=== PATIENT | male | born 1965 | race African-American/Black ===

== ENCOUNTER → 2020-01-15 08:27 | Outpatient (CLI) | payer MEDICAID ==
--- NOTE | 2020-01-18 13:47 | EC ---
PATIENT:MARIBEL STOKES DATE OF SERVICE: 01/15/20 SEX: M MEDICAL RECORD: [id number] DATE OF : 63 [facility] AGE OF PATIENT: 54 ADMISSION DATE: 01/15/20 REFERRING PHYSICIAN: INTERPRETING PHYSICIAN: OUMAR CERNA MD ECHOCARDIOGRAM REPORT ECHO CHARGES 4 ECHO COMPLETE Date: 01/15/20 CLINICAL DIAGNOSIS: HEART MURMUR ECHOCARDIOGRAPHIC MEASUREMENTS (adult normal given) AC root (d.<3.7cm) 4.0 cm LV Septum d (<1.2 cm> 1.5 cm Valve Excursion 2.0 cm LV Septum (systole) 2.1 cm Left Atria (s.<4.0cm> 4.0 cm LVPW d(<1.2cm) 1.4 cm RV (d.<2.3cm) 3.0 cm LVPW (sytole) 2.0 cm LV diastole(<5.6CM) 5.1 cm MV E-F(>70mm/sec) cm LV systole 2.8 cm LVOT Diameter 2.3 cm MV exc.(>10mm) 2.1 cm Est.ejection fraction (50-75%) % DOPPLER: LVIT cm/sec A 63.0 cm/sec E 75.0 cm/sec LA cm/sec RVSP 33 mmHg LVOT 84 cm/sec AOP1/2T m/s Asc. Ao 126 cm/sec RVOT cm/sec RA cm/sec PA 131 cm/sec AV Gradient Peak 6.40 mmHg AV Mean 3.28 mmHg AV Area 2.3 cm MV Gradient Peak 2.57 mmHg MV Mean 0.89 mmHg MV Area cm COMMENTS: Network Development Coordinator: 2 KIM LUCERO Certified Alcohol And Drug Counselor: 3 Dr. Wilcox TAPE# PACS Pericardial Effusion N DATE OF SERVICE: Adequate 2D, color flow imaging, spectral Doppler, and M-mode. LVH is present. LV internal dimension is normal. Wall motion is normal. EF is greater than or equal to 55%. Aortic valve is tricuspid. No evidence of stenosis by Doppler interrogation. Left atrium is normal at 4.8 cm. Mitral valve shows no prolapse. Trace MR. Right-sided chambers are grossly normal. Mild TR. ECHOCARDIOGRAM REPORT [id number] MARIBEL STOKES NTS:[id number] Voice Confirmation ID: [id number] DOCUMENT ID: [id number] OUMAR CERNA MD at 1347 CC: [id number] DICTATION DATE: 01/15/20 1244 BOSS MINER: 01/15/202219 DEP CLI 01/15/20 [place] [id number] [place] [id number]
== END | disposition home or self-care (01) ==
LOC: D.HCCECHO 08:27
PROVIDERS: ATTEND Internal Medicine Cardiovascular Disease
DX: I20.9 Angina pectoris, unspecified (principal); R00.1 Bradycardia, unspecified

== ENCOUNTER 2020-02-08 06:38 | Day surgery (SDC) | payer MEDICAID ==
[~2020-02-08] VITALS: Ht 175.3 cm; Wt 96.0 kg
--- NOTE | ~2020-02-08 | HEMODYNAMI ---
PATIENT:MARIBEL STOKES MEDICAL RECORD: [id number] : 63 LOCATION:D.CAT ADMISSION DATE: 02/08/20 Generatedon:02/08/202010:18 Patient name: MARIBEL STOKES Patient #: [id number] SSN: [id number] : 1965 Date of study: 02/08/2020 Page: Of Hemodynamic Procedure Report Patient Data Patient Demographics Procedure consent was obtained First Name: MARIBEL Gender: Male Last Name: KIKE : 1965 Middle Initial: A Age: 54 year(s) Patient #: [id number] Race: Black SSN: [id number] Additional ID: [id number] Contact details [address]: [address] [place] [address] State: [place] City: [place] Zip code: [address] Past Medical History Allergies Allergen Reaction Date Comments Reported Other allergy 02/08/2020 codeine Admission Admission Data Admission Date: 02/08/2020 Admission Time: 6:38 Arrival Date: 02/08/2020 Arrival Time: 0:00 Admit Source: Other Insurance Payor: Medicare [facility] #: [id number] Lab Results Lab Result Date: 02/08/2020 Lab Result Time: 0:00 Biochemistry Name Units Result Min Max BUN mg/dl 21 --(----)-* 7 18 Creatinine mg/dl 1.5 --(----)-* 0.6 1.3 eGFR ml/min 63 *-(----)-- 90 120 NONAFRICAN CBC Name Units Result Min Max Hemoglobin g/dl 14.6 --(-*--)-- 13.5 17.5 Procedure Procedure Types Cath Procedure Diagnostic Procedure LHC LH w/Coronaries Sedation Charges Moderate Sedation up to 15 minutes PCI Procedure Coronary Stent Coronary Stent Initial Hemochron ACT Test Procedure Description Procedure Date Procedure Date: 02/08/2020 Procedure Start Time: 9:53 Procedure End Time: 10:13 Procedure Staff Name Function Gurjit Hester MD Ordering physician Fortino Casanova MD Performing Physician Cari Portillo RT Monitor Clara Culver RN Nurse Kecia Ayoub RT Scrub Procedure Data Cath Procedure Fluoroscopy Diagnostic fluoroscopy Total fluoroscopy Time: 3.9 time: 3.9 min min Diagnostic fluoroscopy Total fluoroscopy dose: 998 dose: 998 mGy mGy Contrast Material Contrast Material Type Amount (ml) Isovue 370 93 Entry Location Entry Primary Successful Side Size Upsize Upsize Entry Closure Jordan ccessful Closure Location (Fr) 1 (Fr) 2 (Fr) Remarks Device Remarks Radial Right 6 Fr Mechanical artery Short Compression Estimated blood loss: 10 ml Diagnostic catheters Device Type Used For End Catheter Placement DIAGNOSTIC Almena 110cm 5 Procedure Fr catheter ([id number]) Procedure Complications No complications Procedure Medications Medication Administration Route Dosage 0.9% NaCl I.V. 100 ml/hr Oxygen etCO2 Nasal cannula 2 l/min Lidocaine 2% added to field 20 Heparin Flush Bag added to field 2 bags (1000units/500ml NS) Radial Cocktail added to field 1 syringe (Verapamil 2mg/Nitro 400mcg/Heparin 1500units) Versed I.V. 2 mg Fentanyl I.V. 50 mcg Fentanyl I.V. 50 mcg Heparin Bolus I.V. 5000 units Integrilin (Bolus I.V. 8.5 ml 2mg/ml) Integrilin (Bolus wasted 1.5 ml 2mg/ml) Plavix P.O. 600 mg Hemodynamics Rest HGB: 14.6 (g/dl) Heart Rate: 44 (bpm) Pressure Samples Time Site Value (mmHg) Purpose Heart Use Rate(bpm) 9:56 LV 115/13,105 Snapshot 74 9:56 AO 95/71(81) Pullback 50 9:56 LV 99/13,17 Pullback 50 Gradients Valve Time Site 1 Site 2 Mean SEP/DFP Peak To Heart Use (mmHg) (sec/min) Peak Rate (mmHg) (bpm) Aortic 9:56 LV AO 2 7 4 50 99/13,17 95/71(81) Calculations Valve P-P Mean Valve Index Valve Source Name Gradient Area Flow (cm2) Aortic 4 2 4 2 Snapshots Pre Cath Intra NCS Post Cath Vital Signs Time Heart Resp SPO2 etCO2 NIBP (mmHg) Rhythm Pain Sedation Rate (ipm) (%) (mmHg) Status Level (bpm) 9:39:58 46 14 100 32.3 160/88(140) SB 0 (11) 10(A) , No pain 9:44:22 49 24 100 31.5 134/79(104) SB 0 (11) 10(A) , No pain 9:48:44 48 23 100 36.8 119/74(94) SB 0 (11) 10(A) , No pain 9:53:43 49 24 100 36 Measuring SB 0 (11) 10(A) , No pain 9:53:53 48 29 100 35.3 105/71(83) SB 0 (11) 10(A) , No pain 9:58:14 50 15 99 35.3 109/58(79) SB 0 (11) 10(A) , No pain 10:02:32 51 20 99 36 105/58(83) SB 0 (11) 10(A) , No pain 10:06:50 50 15 97 33.8 106/61(91) SB 0 (11) 10(A) , No pain 10:11:06 51 31 99 37.6 114/68(92) SB 0 (11) 10(A) , No pain Medications Time Medication Route Dose Verified Delivered Reason Not es Effectiveness by by 9:39:34 0.9% NaCl I.V. 100 Fortino Clara used for ml/hr Jocelyne Palomo procedure RN 9:39:41 Oxygen etCO2 2 l/min Fortino Clara used for Nasal [facility] procedure cannula RN 9:39:46 Lidocaine 2% added 20ml Fortino Freitas for local to vial [facility] anesthetic field MD GO 9:39:53 Heparin Flush added 2 bags Fortino Freitas Bag to [facility] (1000units/500ml field MD GO NS) 9:39:57 Radial Cocktail added 1 Fortino Freitas used for (Verapamil to syringe [facility] procedure 2mg/Nitro field MD GO 400mcg/Heparin 1500units) 9:51:07 Versed I.V. 2 mg Fortino Clara for sedation [facility] J[facility] Culver MD RN 9:51:18 Fentanyl I.V. 50 mcg Fortino Clara for sedation [facility] Jcar[facility] Culver MD, RN 9:55:39 Fentanyl I.V. 50 mcg Fortino Clara for sedation [facility] Jcarlos Culver MD RN 10:02:05 Heparin Bolus I.V. 5000 Fortino Clara for marlys ified units [facility] Jcarlos Culver anticoagulation with Dr. MD SHAVON Wild John 10:02:22 Integrilin I.V. 8.5 ml Fortino Elizabeth for (Bolus 2mg/ml) St Jcarlos Culver antiplatelet RN therapy 10:05:37 Integrilin wasted 1.5 ml Fortino Montenegroa for (Bolus 2mg/ml) [facility] Jcarlos Culver antiplatelet RN therapy 10:05:42 Plavix P.O. 600 mg Fortino Montenegroa for [facility] Jcarlos Culver antiplatelet RN therapy Procedure Log Time Note 9:30:12 Arrival Date: 02/08/2020 12:00:00 AM 9:30:28 Admit Source: Other 9:30:29 Insurance Payor : Medicare 9:37:38 Procedure Status Elective Heart Cath (OP). 9:37:52 Diagnostic Cath Status : Elective 9:38:12 Clara Culver RN sent for patient. Start room use. 9:38:14 Time tracking: Regular hours (M-F 7:00 - 5:00) 9:38:21 Plan of Care:Hemodynamics will remain stable., Cardiac rhythm will remain stable., Comfort level will be maintained., Respiratory function will remain adequate., Patient/ family verbilizes understanding of procedure., Procedure tolerated without complication., Recovers from procedure without complications.. 9:38:27 Patient received from Pre/Post Procedure Room to CCL 1 Alert and oriented. Tansferred to table in Supine position. 9:38:29 Warm blankets applied, and rebecca hugger turned on for patient comfort. 9:38:29 Correct patient and procedure confirmed by team. 9:38:30 ECG and BP/O2 sat monitors applied to patient. 9:38:33 Vital chart was started 9:38:40 Baseline sample Acquired. 9:38:44 Full Disclosure recording started 9:38:49 H&P Date Dictated: 02/08/2020 Within 30 days and on chart.. 9:38:51 Pre-procedure instructions explained to patient. 9:38:55 Family in patients room. 9:38:57 Patient NPO since Midnight. 9:39:13 Patient allergic to Other allergycodeine 9:39:22 Is the patient allergic to Iodine/contrast media? No. 9:39:24 Informed consent obtained and on chart 9:39:25 Is patient on blood thinner?No 9:39:27 Patient diabetic? No. 9:39:32 Snore? No 9:39:33 Sleep apnea? No 9:39:34 0.9% NaCl 100 ml/hr I.V. was administered by Clara Culver RN; used for procedure; Verbal order read back and verified. 9:39:40 Patient pain scale 0/10 ?. 9:39:41 Oxygen 2 l/min etCO2 Nasal cannula was administered by Clara Culver RN; used for procedure; Verbal order read back and verified. 9:39:46 Lidocaine 2% 20ml vial added to field was administered by Fortino Casanova MD; for local anesthetic; Verbal order read back and verified. 9:39:52 IV patent on arrival in right forearm with 0.9% NaCl at O. 9:39:53 Heparin Flush Bag (1000units/500ml NS) 2 bags added to field was administered by Fortino Casanova MD; ; Verbal order read back and verified. 9:39:57 Radial Cocktail (Verapamil 2mg/Nitro 400mcg/Heparin 1500units) 1 syringe added to field was administered by Fortino Casanova MD; used for procedure; Verbal order read back and verified. 9:40:00 Lab results completed and on chart. 9:40:20 Stress Test: yes; abnormal inferior 9:40:26 Right Radial & Right Groin area was prepped with chlora-prep and draped in sterile fashion 9:40:27 Alarms reviewed by R. N. 9:40:28 Sharps counted by scrub and verified by R.N. 9:40:29 Physician paged 9:41:44 Lab Result : Creatinine 1.5 mg/dl 9:41:44 Lab Result : BUN 21 mg/dl 9:41:44 Lab Result : Hemoglobin 14.6 g/dl 9:41:44 Lab Result : eGFR NONAFRICAN 63 ml/min 9:41:52 Use device set Radial Dx or PCI 9:42:50 ACIST Syringe (46450) opened to sterile field. 9:42:51 Medline Cath Pack ([id number]) opened to sterile field. 9:42:51 Bag Decanter () opened to sterile field. 9:42:52 ACIST Hand Control (23535) opened to sterile field. 9:42:53 ACIST Manifold (49577) opened to sterile field. 9:42:53 Tegaderm 4 x 4 (1626W) opened to sterile field. 9:42:55 MBrace Wrist Support (093974539) opened to sterile field. 9:42:57 EMERALD Guide Wire (045-092) opened to sterile field. 9:42:58 SHEATH 6FR RAIN (9486473) opened to sterile field. 9:49:55 Baseline sample Acquired. 9:50:04 Physician arrived 9:50:05 --------ALL STOP TIME OUT------ 9:50:06 Final Timeout: patient, procedure, and site verified with staff and physician. All members of the team are in agreement. 9:50:07 Right Radial & Right Groin site verified by team. 9:50:12 Fire Safety Assessment: A--An alcohol-based skin anteseptic being used preoperatively., C--Open oxygen or nitrous oxide is being used., D--An ESU, laser, or fiber-optic light is being used. 9:50:20 Physical assessment completed. ASA score P 2 - A patient with mild systemic disease as per Fortino Casanova MD. 9:50:23 2) 60-89 Mildly reduced kidney function, and other findings (as for stage 1) point to kidney disease. 9:50:32 Maximum allowable contrast dose (3.7 X eGFR X 0.75)175 ml. 9:50:37 Sedation plan: IV Moderate Sedation Medication:Versed, Fentanyl 9:51:07 Versed 2 mg I.V. was administered by Clara Culver RN; for sedation; Verbal order read back and verified. 9:51:18 Fentanyl 50 mcg I.V. was administered by Clara Culver RN; for sedation; Verbal order read back and verified. 9:53:07 Procedure started. 9:53:48 Local anesthetic to right radial artery with Lidocaine 2% by Fortino Casanova MD.INITIAL ACCESS ONLY 9:54:53 A 6 Fr Short sheath was inserted into the Right Radial artery 9:54:58 J wire advanced. 9:55:11 A DIAGNOSTIC Almena 110cm 5 Fr catheter (629060) was advanced over the wire and used for Procedure. 9:55:39 Fentanyl 50 mcg I.V. was administered by Clara Culver RN; for sedation; Verbal order read back and verified. 9:55:42 LV angiography performed. 9:55:50 LV gram done using FARIA 9:56:52 LCA angiography performed. 9:59:07 RCA angiography performed. 10:01:02 GUIDE 6FR XBLAD 3.5 catheter ([id number]) opened to sterile field. 10:01:03 INFLATOR Merit BasixCompak (AL9558) opened to sterile field. 10:01:08 WHISPER 300cm guide wire ([id number]) opened to sterile field. 10:01:53 EF : 55 % 10:02:05 Heparin Bolus 5000 units I.V. was administered by Clara Culver RN; for anticoagulation; verified with Dr. Wilcox Verbal order read back and verified. 10:02:22 Integrilin (Bolus 2mg/ml) 8.5 ml I.V. was administered by Clara Culver RN; for antiplatelet therapy; Verbal order read back and verified. 10:03:17 Catheter removed. 10:03:41 6 Fr xblad3.5 guide catheter was inserted over the wire 10:03:49 whisp wire advanced. 10:03:54 Wire advanced across lesion. 10:05:37 Integrilin (Bolus 2mg/ml) 1.5 ml wasted was administered by Clara Culver RN; for antiplatelet therapy; Verbal order read back and verified. 10:05:42 Plavix 600 mg P.O. was administered by Clara Culver RN; for antiplatelet therapy; Verbal order read back and verified. 10:08:20 Place stent Inflation Number: 1 A SHE OTW 3.0 x 18 stent ([id number]) was prepped and advanced across the Mid LAD 80. The stent was deployed at 0 ANDREY for 1:05 (min:sec) 0. 10:08:26 ZEPHYR REGULAR TR BAND (108714) opened to sterile field. 10:10:18 Balloon removed over the wire. 10:10:19 Wire removed. 10:10:20 Guide catheter removed. 10:10:35 Sheath removed intact; hemostasis achieved with Mechanical Compression to the Right Radial artery. 10:10:38 Procedure ended.(Physican Out) 10:10:53 Fluoroscopy time 03.90 minutes. 10:10:58 Fluoroscopy dose: 998 mGy 10:10:58 Flurop Dose total: 998 10:11:04 Dose Area Product 74271 mGy/cm. 10:11:10 Contrast amount:Isovue 370 93ml. 10:11:14 Maximum allowable dose exceeded? No. 10:11:17 Insertion/operative site no bleeding no hematoma. 10:11:29 Post Procedure Pulses reassessed and unchanged 10:11:41 Post-procedure physical assessment completed. ASA score P 2 - A patient with mild systemic disease as per Fortino Casanova MD. 10:11:45 Post procedure rhythm: unchanged. 10:11:47 Estimated blood loss: 10 ml 10:11:50 Post procedure instruction explained to patient.Patient verbalizes understanding. 10:12:42 Procedure type changed to Cath procedure, Diagnostic procedure, LHC, C w/Coronaries, Sedation Charges, Moderate Sedation up to 15 minutes, PCI procedure, Coronary Stent, Coronary Stent Initial, Hemochron ACT Test 10:12:44 Procedure and supply charges have been captured, reviewed, submitted and are correct. 10:13:14 Procedure Complication : No complications 10:13:21 Vital chart was stopped 10:13:29 [facility] Findings: MVD- PCI performed (see procedure note) 10:13:32 See physician's report for complete and final results. 10:13:34 Report given to Pre/Post Procedure Room. 10:13:37 Patient transfered to Pre/Post Procedure Room with Stretcher. 10:13:43 Procedure ended. 10:13:43 Full Disclosure recording stopped 10:13:47 End room use (Document Last) 10:13:49 ACT drawn and resulted at >400- out of range seconds. (normal therapeutic range 180-240 seconds). 10:14:06 ACC-PCI Only Patient was given prescriptions, or instructed by Fortino Casanova MD to start/continue the following medications upon discharge: Plavix Intervention Summary Intervention Notes Time ActionType Lesion and Equipment Action# Pressure Duration Attributes Used 10:08:20 Place stent Mid LAD SHE OTW 3.0 1 0 01:05 x 18 stent ([id number]) Device Usage Item Name Manufacture Quantity Catalog Hospital Part Current Mini mal Lot# / Number Charge Number Stock Stock Serial# Code ACIST Syringe Acist 1 15343 781298 132578 270344 20 (33665) Zoosk Medline Cath Medline 1 [id number] 059647 45805 915148 5 Pack ([id number]) Bag Decanter Microtek 1 2001S 006932 01923 607719 5 (2001S) Medical Inc. ACIST Hand Acist 1 79334 195166 731159 183144 5 Control Medical (44429) Systems Inc ACIST Acist 1 77046 024535 520361 161623 5 Manifold Medical (45720) Systems Inc Tegaderm 4 x 3M 1 1626W 075490 484125 729086 5 4 (1626W) MBrace Wrist Advanced 1 140-0250-00 429919 80005 295844 5 Support Vascular (533282966) Dynamics EMERALD Guide Cardinal 1 502-572 498921 138334 837573 5 Wire Health (502455) SHEATH 6FR Cardinal 1 1745971 946781 7035109 541911 5 [facility] Health (9570895) DIAGNOSTIC Terumo 1 40-3917 613786 835216 186304 5 Almen[place] 110cm 5 Fr catheter (321450) GUIDE 6FR Cardinal 1 92813875 091508 387027 866411 10 XBLAD 3.5 Health catheter (08206190) INFLATOR Merit 1 IV0845 901230 576425 574768 15 Merit Medical BasixCompak (SQ6487) WHISPER 300cm Cam 1 [id number] 430684 089832 296038 5 guide wire Vascular (2407863OQ) SHE OTW 3.0 Medtronic 1 [id number] 439635 6806950 067284 5 [id number] x 18 stent ([id number]) ZEPHYR Cardinal 1 596139 007290 6910197 020455 5 REGULAR TR Health BAND (608711) Signature Audit Gary Stage Time Signature Unsigned Intra-Procedure 02/08/2020 Cari Portillo 10:17:46 AM RT(R) Intra-Procedure 02/08/2020 Clara Culver 10:18:10 AM RN Intra-Procedure 02/08/2020 Fortino Mcmillan 10:18:35 AM Jcarlos GO [facility] [address] [place] [address]
[2020-02-08] MEDS ORDERED: TIMOPTIC 0.5 % O5 ML EACH EYE (08:16)
[2020-02-08] MEDS ORDERED: NORVASC2.5 MG PO (08:16)
[2020-02-08] MEDS ORDERED: COZAAR100 MG PO (08:16)
[2020-02-08 08:26] VITALS: BP 150/66; Ht 175.3 cm; Wt 96.0 kg
[2020-02-08 08:55] LABS: BASOPHILS 0.3 % (0-2); EOSINOPHILS 2.9 % (0-7); HEMATOCRIT 46.1 % (42.0-54.0); HEMOGLOBIN 14.6 g/dL (13.5-17.5); IMMATURE GRANULOCYTES 0.3 % (0-5); LYMPHOCYTES 35.5 % (15-50); MCH 29.6 pg (26.0-34.0); MCHC 31.7 g/dL (31.0-37.0); MCV 93.3 fL (80.0-100.0); MEAN PLATELET VOLUME 11.3 fL (7.4-10.4); MONOCYTES 9.2 % (2-11); NEUTROPHILS 51.8 % (40-80); PLATELET COUNT 149 10x3/uL (130-400); RBC 4.94 10x6/uL (4.20-6.10); WBC 6.9 10x3/uL (4.8-10.8)
[2020-02-08 09:16] LABS: CALCIUM 8.8 mg/dL (8.5-10.1); CARBON DIOXIDE 30.2 mmol/L (21.0-32.0); CREATININE - SERUM 1.5 mg/dL (0.6-1.3); LDL-HDL RATIO 2.8 ratio (1.5-3.5); POTASSIUM - SERUM 4.2 mmol/L (3.5-5.1)
--- NOTE | 2020-02-08 10:25 | NUR ---
PT ARRIVED BY STRETCHER. PLACED ON MONITORS. ASSESSMENT COMPLETED. VSS AT THIS TIME. CALL LIGHT WITHIN REACH. FAMILY AT BEDSIDE. DR. CERNA ROUNDED AND UPDATED FAMILY.
[2020-02-08] MEDS ORDERED: BAYER CHEWABLE81 MG PO (10:35)
[2020-02-08] MEDS ORDERED: PLAVIX75 MG PO (10:35)
[2020-02-08] MEDS ORDERED: LIPITOR40 MG PO (10:35)
--- NOTE | 2020-02-08 10:40 | NUR ---
PT RESTING COMFORTABLY. VSS. RIGHT WRIST Z BAND IN PLACE. NO BLEEDING/HEMATOMA NOTED. CALL LIGHT WITHIN REACH. VSS.
--- NOTE | 2020-02-08 11:10 | NUR ---
RIGHT WRIST Z BAND IN PLACE. NO BLEEDING/HEMATOMA NOTED. VSS. CALL LIGHT WITHIN REACH. FAMILY AT BEDSIDE. PT RESTING COMFORTABLY.
--- NOTE | 2020-02-08 11:40 | NUR ---
RIGHT WRIST Z BAND IN PLACE. NO BLEEDING/HEMATOMA NOTED. CALL LIGHT WITHIN REACH. VSS AT THIS TIME. HEAD OF BED INC TO 30 DEGREES. SET UP WITH COFFEE AND SANDWICH TRAY AT THIS TIME. DENIES NAUSEA/PAIN.
--- NOTE | 2020-02-08 12:10 | NUR ---
PT SITTING UP IN BED. RIGHT WRIST Z BAND IN PLACE. NO BLEEDING/HEMATOMA NOTED. VSS AT THIS TIME. DENIES NAUSEA/PAIN.
--- NOTE | 2020-02-08 12:40 | NUR ---
RIGHT WRIST Z BAND IN PLACE. NO BLEEDING/HEMATOMA NOTED. CALL LIGHT WITHIN REACH. FAMILY AT BEDSIDE. VSS. NO NEEDS AT THIS TIME.
--- NOTE | 2020-02-08 13:15 | NUR ---
2cc OF AIR REMOVED FROM Z BAND. NO BLEEDING/HEMATOMA NOTED. VSS. CALL LIGHT WITHIN REACH. NO NEEDS AT THIS TIME.
--- NOTE | 2020-02-08 13:30 | NUR ---
3cc OF AIR REMOVED FROM Z BAND. NO BLEEDING/HEMATOMA NOTED. CALL LIGHT WITHIN REACH. VSS AT THIS TIME. FAMILY AT BEDSIDE. NO NEEDS AT THIS TIME.
--- NOTE | 2020-02-08 13:45 | NUR ---
5cc OF AIR REMOVED FROM Z BAND. NO BLEEDING/HEMATOMA NOTED. CALL LIGHT WITHIN REACH. VSS AT THIS TIME. PT SITTING UP WATCHING TELEVISION. DENIES PAIN/NAUSEA. FAMILY AT BEDSIDE.
--- NOTE | 2020-02-08 14:05 | NUR ---
Z BAND REMOVED AND DRESSING APPLIED. NO BLEEDING/HEMATOMA NOTED. RIGHT WRIST BRACE IN PLACE. PIV D/C'D WITH CATH TIP INTACT. TOLERATED WELL. VSS. PT INSTRUCTED TO GET UP AND DRESSED AT THIS TIME. FAMILY AT BEDSIDE TO ASSIST.
--- NOTE | 2020-02-08 14:15 | NUR ---
PT AMBULATED TO RESTROOM. VOIDED WITHOUT DIFFICULTY. STEADY GAIT NOTED. DISCUSSED DISCHARGE INSTRUCTIONS WITH PT AND PT'S . THEY VOICED UNDERSTANDING.
--- NOTE | 2020-02-08 14:25 | NUR ---
RIGHT WRIST DRESSING C/D/I. NO S/S OF HEMATOMA NOTED.
--- NOTE | 2020-02-08 14:30 | NUR ---
PT CALLED SCAT BUS FOR FREIGHT BREAKER. PT TAKEN DOWN TO WAIT ON BUS AT ER DOOR. NO S/S OF DISTRESS NOTED. ALL BELONGINGS AND PAPERWORK IN HAND.
--- NOTE | 2020-02-10 08:18 | OP ---
PATIENT NAME: MARIBEL STOKES MEDICAL RECORD: [id number] :63 LOCATION:D.CAT ADMISSION DATE: SURGEON: OUMAR CERNA MD DATE OF OPERATION: 02/08/2020 PROCEDURE: Left heart catheterization, selective coronary angiography, right radial approach. CATHETERS: Radial sheath, Pelican catheter. The procedure was well tolerated and stenting of the LAD as procedure finished. FINDINGS: Left ventriculography in 30-degree FARIA view: Normal wall motion, normal systolic function. CORONARY ANATOMY: LEFT MAIN: Left main is free of disease. LAD: Has an 80% stenosis in its proximal portion correlating nicely with nuclear study. CIRCUMFLEX: Left dominant system, free of disease. RIGHT CORONARY ARTERY: Rudimentary, free of disease. IMPRESSION: Critical disease left anterior descending correlating nicely with nuclear study. PLAN: Intervention momentarily. DESCRIPTION OF PROCEDURE: Using indwelling sheath, an XB LAD guide catheter provided excellent guiding catheter support followed by 300 cm of whisper wire, stent deployed was an 3.0 x 18, Pete drug-eluting stent up to 14 atmospheres for 45 seconds. Final angiography shows excellent resolution up to 80% stenosis. No significant residual. АНДРЕЙ flow was 3 throughout the procedure. Sheath was closed with TR band. Plavix was loaded in the lab. The patient will be started on statin as well. TRANSINT:[id number] Voice Confirmation ID: [id number] DOCUMENT ID: [id number] OUMAR CERNA MD at 0818 CC: [id number] DICTATION DATE: 02/08/20 1018 HEAVY CLEANER: 02/08/20 2138 [facility] [place] 02/08/[address] [address]
--- NOTE | 2020-02-10 08:18 | HP ---
PATIENT: MARIBEL STOKES MEDICAL RECORD: [id number] ACCOUNT: [id number] LOCATION:KAT : 63 ADMISSION DATE: 02/08/20 PCP: BRENNA GARCIA DO HISTORY AND PHYSICAL EXAMINATION HISTORY OF PRESENT ILLNESS: A 54-year-old gentleman with no known history of coronary artery disease, has a history of hypertension, hyperlipidemia, and ongoing tobacco use, underwent a Cardiolite stress testing, was found to have significant reversibility, does have a strong family history as well. He has been admitted for diagnostic angiography. PAST MEDICAL HISTORY: Includes; 1. History of hypertension. 2. Hyperlipidemia. MEDICATIONS: Include amlodipine 2.5 daily, losartan 100 mg p.o. daily, aspirin 81 daily. PHYSICAL EXAMINATION: GENERAL: Pleasant, in no acute distress, appears stated age. HEENT: Normocephalic, atraumatic. NECK: No JVD or bruit. HEART: Regular. LUNGS: [place] clear. ABDOMEN: Soft, nontender. EXTREMITIES: Pulse 2+. No edema. IMPRESSION: Accelerated angina. PLAN: For angiography, intervention based on above. TRANSINT:[id number] Voice Confirmation ID: [id number] DOCUMENT ID: [id number] OUMAR CERNA MD at 0818 CC: [id number] DICTATION DATE: 02/08/20811 TRANSITION PROGRAM MANAGER: 02/08/20 1050 [facility] 02/08/20 [place] [id number]
== END 2020-02-08 14:30 | disposition home or self-care (01) ==
LOC: D.CATH 06:38
PROVIDERS: ATTEND Internal Medicine Interventional Cardiology
DX: I25.119 Atherosclerotic heart disease of native coronary artery with unspecified angina pectoris (principal); I10 Essential (primary) hypertension; E78.5 Hyperlipidemia, unspecified; Z72.0 Tobacco use; R94.39 Abnormal result of other cardiovascular function study; R00.1 Bradycardia, unspecified; R01.1 Cardiac murmur, unspecified; Z82.49 Family history of ischemic heart disease and other diseases of the circulatory system

== ENCOUNTER → 2020-09-07 10:18 | Outpatient (CLI) | payer OTHER ==
[2020-02-08 08:26] VITALS: BMI 31.2
[~2020-09-07 10:18] MED LIST: BAYER CHEWABLE81 MG PO; COZAAR100 MG PO; LIPITOR40 MG PO; NORVASC2.5 MG PO; PLAVIX75 MG PO; TIMOPTIC 0.5 % O5 ML EACH EYE
== END | disposition home or self-care (01) ==
LOC: D.CT 10:00
PROVIDERS: ATTEND Clinical Nurse Specialist Family Health
DX: M25.551 Pain in right hip (principal)

== ENCOUNTER → 2020-09-07 16:42 | Outpatient (CLI) | payer OTHER ==
[2020-02-08 08:26] VITALS: BMI 31.2
== END | disposition home or self-care (01) ==
LOC: D.LABREF 16:42
PROVIDERS: ATTEND Orthopaedic Surgery
DX: M16.11 Unilateral primary osteoarthritis, right hip (principal)

== ENCOUNTER 2020-10-19 08:00 | Outpatient (CLI) | payer OTHER ==
[~2020-10-19 08:00] MED LIST changes: +ALPHAGAN P15 ML; +FOLIC ACID1 MG PO; +PREDNISOLONE 110 ML; +TRUSOPT 2 % OPT10 ML; +XALATAN 0.0052.5 ML
[2020-10-19] MEDS ORDERED: ALPHAGAN P 0.155 ML EACH EYE (13:13)
[2020-10-19] MEDS ORDERED: METHOTREXATE2.5 MG PO (13:15)
[2020-10-26 14:36] VITALS: BMI 31.1
== END 2020-10-19 08:01 | disposition home or self-care (01) ==
LOC: D.OPS 08:00
PROVIDERS: ATTEND Orthopaedic Surgery
DX: M16.11 Unilateral primary osteoarthritis, right hip (principal); I10 Essential (primary) hypertension; G62.9 Polyneuropathy, unspecified; F32.9 Major depressive disorder, single episode, unspecified; H40.9 Unspecified glaucoma; Z87.891 Personal history of nicotine dependence; D64.9 Anemia, unspecified

== ENCOUNTER 2020-10-25 06:20 | Observation (INO) | payer OTHER ==
[2020-10-19 09:51] LABS: BILIRUBIN NEGATIVE (NEGATIVE); KETONE NEGATIVE (NEGATIVE); NITRITE NEGATIVE (NEGATIVE); UROBILINOGEN NORMAL mg/dL (< 2)
[2020-10-19 13:10] LABS: BASOPHILS 0.5 % (0-2); EOSINOPHILS 2.3 % (0-7); HEMATOCRIT 45.9 % (42.0-54.0); HEMOGLOBIN 14.9 g/dL (13.5-17.5); IMMATURE GRANULOCYTES 0.6 % (0-5); LYMPHOCYTE ABS# 2.57 10x3/uL (1.32-3.57); LYMPHOCYTES 39.1 % (15-50); MCH 30.5 pg (26.0-34.0); MCHC 32.5 g/dL (31.0-37.0); MCV 93.9 fL (80.0-100.0); MEAN PLATELET VOLUME 11.7 fL (7.4-10.4); MONOCYTES 7.3 % (2-11); NEUTROPHIL ABS# 3.31 10x3/uL (1.78-5.38); NEUTROPHILS 50.2 % (40-80); PLATELET COUNT 166 10x3/uL (130-400); RBC 4.89 10x6/uL (4.20-6.10); RDW 14.5 % (11.5-14.5); WBC 6.6 10x3/uL (4.8-10.8)
[2020-10-19 13:20] LABS: ANION GAP 10.9 mmol/L (8-16); CALCIUM 9.1 mg/dL (8.5-10.1); CARBON DIOXIDE 28.6 mmol/L (21.0-32.0); CREATININE - SERUM 1.3 mg/dL (0.6-1.3); POTASSIUM - SERUM 4.5 mmol/L (3.5-5.1)
[2020-10-19 13:22] LABS: APTT 28.4 SECONDS (22.8-39.4); INR 1.1 (0.85-1.17); PROTIME 13.1 SECONDS (11.6-15.0)
[2020-10-25] VITALS (10 sets, daily range): BP systolic 108–155; BP diastolic 64–83; BMI 31.3; BMI 31.2
[~2020-10-25] VITALS: Ht 175.3 cm; Wt 95.7 kg
[~2020-10-25 06:20] MED LIST changes: +ALPHAGAN P 0.155 ML EACH EYE; +METHOTREXATE2.5 MG PO
--- NOTE | 2020-10-25 09:42 | NUR ---
PT OPERAATICE LEG CLEANSED WITH HIBECLENS AND ALCOHOL FROM WAIST TO CALF CIRCUMFERENTIALLY PRIOR TO PREP. PREPPED WITH CHLORAPREP X2 FROM HIP TO CALF CIRCUMFERENTIALLY. RN IN STERILE ATTIRE TO PREP. GROUNDING PAD LEFT FLANK LOT#[id number] EXP [id number] PLASMA BLADE SET TO 6/8
--- NOTE | 2020-10-25 12:11 | NUR ---
RECIEVED PER BED FROM PACU. AWAKE AND ALERT DOES DRIFT TO SLEEP WHEN NOT TALKING. STATES ON PAIN. DRESSING CLEAN DRY AND INTACT TO RIGHT HIP. TEDS AND SCDS ON BILAT. INCENTIVE SPRIOMETRY PERFORMED AT 2750CC X 5. IV TO LEFT HAND WITHOUT SWELLING OR REDDNESS. SPOUSE AT BEDSIDE. ALL FALL PRECAUTIONS IN PLACE. ICE BAG TO RIGHT HIP. CALL LIGHT IN REACH
--- NOTE | 2020-10-25 15:55 | OP ---
PATIENT NAME: MARIBEL IZAGUIRRE MEDICAL RECORD: [id number] :63 [facility] AD[facility]ION DATE:10/25/20 SURGEON: MIR CHASE DO DATE OF OPERATION: 10/25/2020 PROCEDURE PERFORMED: Right total hip arthroplasty. PREOPERATIVE DIAGNOSIS: Right hip osteoarthritis. POSTOPERATIVE DIAGNOSIS: Right hip osteoarthritis. INDICATIONS: Mr. Izaguirre is a 55-year-old male who has had right hip pain for quite some time. He was tired of dealing with the pain. He was aware of the risks of this procedure including infection, bleeding, fracture, damage to nerves or vessels, need for further surgery, continued pain, failure of implants, blood clots and even . He signed a consent. SURGEON: Mir Chase DO DESCRIPTION OF PROCEDURE: The patient was taken to the operative suite and laid in supine position, given general anesthetic, intubated and sedated. He was given 2 grams of Ancef, 80 mg of gentamicin a gram of TXA. The right hip was prepped and draped in sterile fashion. Timeout was performed. Everyone was in agreeance with the correct side, site, patient and procedure. I then began by marking out the incision of the tensor fasciae latae muscle. Made careful dissection down to the muscle. I took the fascia anteriorly with the muscle belly posteriorly, opened up the rectus interval of the rectus medially, tensor fascia neftali laterally. I then tied off the ascending branch of lateral femoral circumflex, coagulated and cut it, coagulating any other vessels, put Hohmanns around the neck of the femur and extracapsularly, then opened up the capsule, tagged it, put Hohmanns inside the neck. I then got an x-ray to ensure that it was at the neck and I made a neck cut. I then removed the head and put in the Charnley, removed the labrum and pulvinar, and began reaming. Reamed up to a 58, [address] cup was impacted into place and the liner was put in and impacted as well. I then exposed the femur. It was very tight. I had to release the posterior capsule as well as the ischial femoral ligament exposing the femur. I then used a rasp and got into the femoral canal and a cookie cutter to get more lateral. I then broached up to a 12 I believe, then reduced it and saw that I need to get more lateral. I then removed that, tried a 14 this side, it was still needing a more lateral. Using a cookie cutter to get more lateral and then put in a 15, 15 fit very well and reduced with a standard neck and then it was equal lengths to the left side and there were no fractures seen in the femur. The femoral stem was good in the center of the shaft. I then removed the trial and irrigated thoroughly and then put in the actual 15 stem, reduced a standard neck on dual mobility head and then got x-rays, saw that he had equal lengths off of his ischial tuberosities and the lesser trochanter of the left and the right. There was no fracture seen in the femur of the neck. The stem was in good position. I then irrigated with 10% povidine-iodine and 500 mL of normal saline solution, let it sit for few minutes. Cleveland Sotomayor, certified surgical nutrition assistant irrigated out with over a liter of normal saline, put in Tank and vancomycin and tobramycin powder and closed the tensor fascia neftali fascia with #1 Vicryl and then a [id number] and a running locking stitch and the skin with 2-0 Vicryl in an inverted interrupted fashion and 4-0 Monocryl ran on the skin and placed a Prineo glue on the skin and dressed with Telfa and Tegaderm. He was then awakened and taken to recovery in stable condition. OPERATIVE REPORT [id number] MARIBEL IZAGUIRRE A Blood loss was approximately 300 mL. COMPLICATIONS: None. TRANSINT:[id number] Voice Confirmation ID: [id number] DOCUMENT ID: [id number] MIR CHASE DO at 1555 CC: [id number] DICTATION DATE: 10/25/20 1039 YARN CARRIER: 10/25/20 1537 ADM IN [facility] [address] [id number]
--- NOTE | 2020-10-25 16:23 | MORECARE ---
CASE MANAGEMENT DISCHARGE SUMMARY PATIENT: MARIBEL IZAGUIRRE UNIT: [id number] ADM DATE: 10/25/20 AGE: 55 : 63 SEX: M ROOM/BED: D.1213 AUTHOR: TONYA DREW PHYSICIAN: REFERRING PHYSICIAN: REID CHASE DO DATE OF SERVICE: 10/25/20 Case Management Discharge Planning Summary COMMENTS ENTERED DATE: 10/25/20 16:23 CT COMMENT TYPE: Discharge Planning REVIEWER: Santi Reno CM met with patient to complete DC plan and to evaluate needs. Patient lives independently with his spouse, Ilda Izaguirre, [phone]. Patient stated that his home is safe and has electricity and running water. Patient stated that the home has a ramp to enter and he is able to manage the ramp without difficulty. Patient stated that he has no problems paying for medications and he fills his medications at [facility]. Patient stated that his primary care physician is Dr. Cagle. At discharge, the patient plans to return Home and feels this is a safe discharge. CM discussed availability of home health, rehab services, and medical equipment. Patient declined HHS, SNF, and IPR. Patient stated that he only has a cane and walker at home and he would like a bedside commode and shower chair through [facility]. Patient stated he would like [facility]patient PT with [facility]. Clinical Documents faxed to [facility]. CLAIRE signed for [facility] and [facility]. CLAIRE placed in chart. Patient voiced no other needs at this time and is satisfied with DC plan. CM will continue to follow and will assist as needed with dc plans/needs. DCP REVIEW SUMMARY ANTICIPATED D/C DATE: 10/25/2020 EXPECTED LOS : 1 CASE STATUS: DCP Initiated INITIAL REVIEW: 10/25/2020 INITIAL REVIEWER: Santi Reno FINAL DISCHARGE DISPOSITION: : FINAL REVIEWER: FINAL REVIEW DATE: DCP Focus Questions & Answers DCP Evaluation QUESTION: ANSWER Patient and/or caregiver agree upon recommended discharge plan? : Yes Family / Caregiver's ability to cope with chronic illness: : a. Adequate (ability to meet patient's medical needs, ensures patient attends medical appts.) Patient's current cognitive status: : *Oriented to person, place, situation, time and present Patient's ability to cope with chronic illness : d. No chronic illness Patient gives permission to discuss discharge plans with: (name, relationship and number) : spouse, Ilda Izaguirre, [phone] Does the patient have the ability to pay for or attain post discharge needs / services? : Yes Functional screen assessment: : Basic needs can adequately be met by self Family / Caregiver's ability to cope with chronic illness: : a. Adequate (ability to meet patient's medical needs, ensures patient attends medical appts.) Physical Status: : Independent with ADL's Equipment needed for post hospitalization: : Shower Chair Equipment needed for post hospitalization: : Bedside Commode Is there a likelihood that the patient will require additional services to return to the preadmission environment? : Yes Living Arrangements: : Home with Spouse/Significant Other Patient with capacity for self-care or can be cared for in same environment as prior to hospitalization? : Yes Baseline cognitive status: : *Oriented to person, place, situation, time and present Physical environment modification needed / anticipated for discharge: : No Medication Management: : Patient states can read and understand medication labels Medication Management: : Patient states can afford medications Pharmacy name(s): : [facility] Does Patient have transportation to get home and to follow-up medical appointments when discharged from the hospital? : Yes Would patient like to participate in any Care Coordination programs (if applicable): : Not applicable Does the patient have electricity at home? : Yes Does the patient have running water in their house? : Yes Equipment in use: : Walker - Rolling Mental health screen: : No mental health history DCP Re-evaluation QUESTION: ANSWER Would patient like to participate in any Care Coordination programs (if applicable): : Not applicable PATIENT: MARIBEL IZAGUIRRE ENCOUNTER: [id number] MEDICAL RECORD#: [id number] ADMISSION DATE: 10/25/2020 DISCHARGE DATE: ATTENDING MD: REID APONTE : AGE: 55 MARITAL STATUS: M DC PLAN ID: [id number] FACILITY: [facility] PRINTED ON: 10/25/20 16:23 CT All edits/amendments must be made on the electronic document DICTATION DATE: 10/25/201622 AD TERMINAL MAKEUP OPERATOR: MELIZA 10/25/201622 RPT#: [id number] DC DATE: STATUS: ADM IN [facility] [address] [place] [address] END OF REPORT
--- NOTE | 2020-10-25 17:32 | NUR ---
pt has no complaints at present. wants to get up and instructed pt that he does not get up without therapy to assess first. fall alarm on and active. dressing remains clean and dry. ice bag to hip. call light in reach
--- NOTE | 2020-10-25 19:50 | NUR ---
PATIENT RESTING IN BED WITH NO S/S OF DISTRESS AND DENIES NEEDS AT THIS TIME. BED IN LOWEST POSITION AND CALL LIGHT IN REACH. IV TO LEFT HAND INFUSING. NO SIGN OF INFILTRATION. DRESSING TO RIGHT HIP C/D/I. BED IN LOWEST POSITION AND CALL LIGHT IN REACH. ENCOURAGED PATIENT TO CALL WITH NEEDS.
[2020-10-26 00:15] VITALS: BP 126/69
[2020-10-26 05:21] VITALS: BP 144/80
[2020-10-26 07:00] VITALS: BP 128/71
--- NOTE | 2020-10-26 07:30 | NUR ---
AWAKE AND ALERT. ORIENTED X3. NO C/O AT THIS TIME. LUNGS ARE CLEAR BILATERALLY, NO COUGH NOTED. REPORTED USED IS INSTRUCTED. SKIN IS INTACT WITHOUT REDNESS EXCEPT INCISION TO RIGHT HIP WHICH HAS A DRY INTACT DRESSING IN PLACE. IV TO LEFT HAND IS PATENT WTIHOUT REDNESS AT INSERTION SITE. AT BEDSIDE. DENIES NEEDS.
[2020-10-26 07:51] LABS: ALBUMIN 2.9 g/dL (3.4-5.0); BILIRUBIN - TOTAL 0.58 mg/dL (0.2-1.3); CALCIUM 7.9 mg/dL (8.5-10.1); CARBON DIOXIDE 24.9 mmol/L (21.0-32.0); CREATININE - SERUM 1.4 mg/dL (0.6-1.3); POTASSIUM - SERUM 3.9 mmol/L (3.5-5.1); PROTEIN - SERUM 5.7 g/dL (6.4-8.2)
[2020-10-26 07:53] LABS: BASOPHILS 0.2 % (0-2); EOSINOPHILS 0.6 % (0-7); HEMATOCRIT 35.2 % (42.0-54.0); HEMOGLOBIN 11.9 g/dL (13.5-17.5); IMMATURE GRANULOCYTES 0.3 % (0-5); LYMPHOCYTE ABS# 1.44 10x3/uL (1.32-3.57); LYMPHOCYTES 15.2 % (15-50); MCH 31.2 pg (26.0-34.0); MCHC 33.8 g/dL (31.0-37.0); MCV 92.1 fL (80.0-100.0); MEAN PLATELET VOLUME 12.1 fL (7.4-10.4); MONOCYTES 13.3 % (2-11); NEUTROPHIL ABS# 6.65 10x3/uL (1.78-5.38); NEUTROPHILS 70.4 % (40-80); PLATELET COUNT 128 10x3/uL (130-400); RBC 3.82 10x6/uL (4.20-6.10); RDW 14.4 % (11.5-14.5); WBC 9.5 10x3/uL (4.8-10.8)
--- NOTE | 2020-10-26 09:00 | NUR ---
ATE SOME OF BREAKFAST BUT C/O NAUSEA. WILL MONITOR. TOOK AM MEDS WITHOUT DIFFICULTY. DENIES NEEDS.
--- NOTE | 2020-10-26 09:30 | NUR ---
AMBULATED IN HALLWAY WITH PT USING RW. DID WELL WITH EXERTION. REQUESTED AND GIVEN ONE PERCOCET PO FOR C/O RIGHT HIP PAIN LEVEL 8. WILL MONITOR..
[2020-10-26 11:00] VITALS: BP 124/71
--- NOTE | 2020-10-26 12:30 | NUR ---
SITTING UP IN CHAIR AT BEDSIDE EATING LUNCH. DENIES NEEDS.
--- NOTE | 2020-10-26 13:26 | NUR ---
REQUESTED AND GIVEN ONE PERCOCET PO FOR C/O RIGHT HIP PAIN LEVEL 10. WILL MONITOR.
--- NOTE | 2020-10-26 14:00 | NUR ---
AMBULATED IN DUFF WITH PT. REPORTED PAIN BETTER WITH ACTIVITY. AT BEDSIDE.
[2020-10-26 14:36] VITALS: Ht 175.3 cm; Wt 95.7 kg
--- NOTE | 2020-10-26 17:13 | MORECARE ---
CASE MANAGEMENT DISCHARGE SUMMARY PATIENT: MARIBEL IZAGUIRRE UNIT: [id number] ADM DATE: 10/25/20 AGE: 55 : 63 SEX: M ROOM/BED: D.1213 AUTHOR: VIKI,DOC PHYSICIAN: REFERRING PHYSICIAN: REID CHASE DO DATE OF SERVICE: 10/26/20 Case Management Discharge Planning Summary COMMENTS ENTERED DATE: 10/26/20 17:09 CT COMMENT TYPE: Discharge Planning REVIEWER: Kelly Gong CM called [facility] and scheduled patient therapy appointment for Saturday 12:40 - was soonest appointment available. Faxed orders and records as requested. CM met with patient and informed him of therapy appointment. Patient verbalized understanding and satisfaction with discharge plans. States he has walker now-CM observed walker in patient's room. CM put patient's copy of therapy appointment in hard chart for nurse to give him upon discharge with other DC instructions. Informed nurse, Gauri. Patient denies any other discharge planning needs at this time. ENTERED DATE: 10/25/20 16:23 CT COMMENT TYPE: Discharge Planning REVIEWER: Santi Reno CM met with patient to complete DC plan and to evaluate needs. Patient lives independently with his spouse, Ilda Izaguirre, [phone]. Patient stated that his home is safe and has electricity and running water. Patient stated that the home has a ramp to enter and he is able to manage the ramp without difficulty. Patient stated that he has no problems paying for medications and he fills his medications at [facility]. Patient stated that his primary care physician is Dr. Cagle. At discharge, the patient plans to return Home and feels this is a safe discharge. CM discussed availability of home health, rehab services, and medical equipment. Patient declined HHS, SNF, and IPR. Patient stated that he only has a cane and walker at home and he would like a bedside commode and shower chair through [facility]. Patient stated he would like [facility]patient PT with [facility]. Clinical Documents faxed to [facility]. CLAIRE signed for [facility]. CLAIRE placed in chart. Patient voiced no other needs at this time and is satisfied with DC plan. CM will continue to follow and will assist as needed with dc plans/needs. DCP REVIEW SUMMARY ANTICIPATED D/C DATE: 10/25/2020 EXPECTED LOS : 1 CASE STATUS: DCP Initiated INITIAL REVIEW: 10/25/2020 INITIAL REVIEWER: Santi Reno FINAL DISCHARGE DISPOSITION: : FINAL REVIEWER: FINAL REVIEW DATE: DCP Focus Questions & Answers DCP Evaluation QUESTION: ANSWER Patient gives permission to discuss discharge plans with: (name, relationship and number) : spouse, Ilda Izaguirre, [phone] Patient's ability to cope with chronic illness : d. No chronic illness Patient's current cognitive status: : *Oriented to person, place, situation, time and present Family / Caregiver's ability to cope with chronic illness: : a. Adequate (ability to meet patient's medical needs, ensures patient attends medical appts.) Patient and/or caregiver agree upon recommended discharge plan? : Yes Physical Status: : Independent with ADL's Family / Caregiver's ability to cope with chronic illness: : a. Adequate (ability to meet patient's medical needs, ensures patient attends medical appts.) Functional screen assessment: : Basic needs can adequately be met by self Does the patient have the ability to pay for or attain post discharge needs / services? : Yes Living Arrangements: : Home with Spouse/Significant Other Is there a likelihood that the patient will require additional services to return to the preadmission environment? : Yes Equipment needed for post hospitalization: : Bedside Commode Equipment needed for post hospitalization: : Shower Chair Baseline cognitive status: : *Oriented to person, place, situation, time and present Patient with capacity for self-care or can be cared for in same environment as prior to hospitalization? : Yes Physical environment modification needed / anticipated for discharge: : No Medication Management: : Patient states can afford medications Medication Management: : Patient states can read and understand medication labels Pharmacy name(s): : [facility] Does Patient have transportation to get home and to follow-up medical appointments when discharged from the hospital? : Yes Would patient like to participate in any Care Coordination programs (if applicable): : Not applicable Does the patient have electricity at home? : Yes Does the patient have running water in their house? : Yes Equipment in use: : Walker - Rolling Mental health screen: : No mental health history DCP Re-evaluation QUESTION: ANSWER Would patient like to participate in any Care Coordination programs (if applicable): : Not applicable PATIENT: MARIBEL IZAGUIRRE ENCOUNTER: [id number] MEDICAL RECORD#: [id number] ADMISSION DATE: 10/25/2020 DISCHARGE DATE: ATTENDING MD: REID APONTE : AGE: 55 MARITAL STATUS: M DC PLAN ID: [id number] FACILITY: [facility] PRINTED ON: 10/26/20 17:13 CT All edits/amendments must be made on the electronic document DICTATION DATE: 10/26/201712 BULLDOGGER: MELIZA 10/26/201712 RPT#: [id number] DC DATE: STATUS: ADM IN [facility] [address] [place] [address] END OF REPORT
--- NOTE | 2020-10-26 18:14 | NUR ---
ATE ALL OF SUPPER AT THIS TIME. DENIES NEEDS. NO CHANGES NOTED. AT BEDSIDE.
[2020-10-26 20:00] VITALS: BP 140/73
--- NOTE | 2020-10-26 20:00 | NUR ---
ALERT SITTING UP IN BED, DENIES PAIN OR NEEDS AT THIS TIME, SEE SHIFT ASSESSMENT CALL JOANA ARIAS
[2020-10-27 05:30] VITALS: BP 128/71
[2020-10-27 06:14] LABS: BASOPHILS 0.2 % (0-2); EOSINOPHILS 1.2 % (0-7); HEMATOCRIT 33.8 % (42.0-54.0); HEMOGLOBIN 10.8 g/dL (13.5-17.5); IMMATURE GRANULOCYTES 0.5 % (0-5); LYMPHOCYTE ABS# 1.81 10x3/uL (1.32-3.57); LYMPHOCYTES 21.2 % (15-50); MCH 29.8 pg (26.0-34.0); MCV 93.1 fL (80.0-100.0); MONOCYTES 16.3 % (2-11); NEUTROPHIL ABS# 5.16 10x3/uL (1.78-5.38); NEUTROPHILS 60.6 % (40-80); PLATELET COUNT 122 10x3/uL (130-400); RBC 3.63 10x6/uL (4.20-6.10); RDW 14.7 % (11.5-14.5); WBC 8.5 10x3/uL (4.8-10.8)
[2020-10-27 06:23] LABS: ALBUMIN 2.6 g/dL (3.4-5.0); ANION GAP 9.4 mmol/L (8-16); BILIRUBIN - TOTAL 0.55 mg/dL (0.2-1.3); CALCIUM 7.9 mg/dL (8.5-10.1); CARBON DIOXIDE 27.5 mmol/L (21.0-32.0); CREATININE - SERUM 1.5 mg/dL (0.6-1.3); POTASSIUM - SERUM 3.9 mmol/L (3.5-5.1); PROTEIN - SERUM 5.7 g/dL (6.4-8.2)
[2020-10-27 07:27] VITALS: BP 117/72
--- NOTE | 2020-10-27 07:36 | NUR ---
PT IS RESTING IN BED WITH EYES OPEN. RESPIRATIONS ARE EVEN AND UNLABORED. PT IS AAO X 4 AND ANSWERS ALL QUESTIONS APPROPRIATELY. DRESSING TO RIGHT HIP IS NOTED AND CDI. PT DENIES PRESENCE OF NUMBNESS/TINGLING TO BLE. CAP REFILL TO BLE IS < 3. PT DENIES RPESENCE OF PAIN/N/V. PT DENIES PRESENCE OF SOB/DYSPNEA AT THIS TIME. INCENTIVE SPIROMETER WITHIN REACH AND ENCOURAGED. BLE SCD/TEDS ON. FAMILY MEMBER AT BEDSIDE. BED IS IN THE LOWEST POSITION. CALL LIGHT AND BEDSIDE TABLE ARE WITHIN REACH. SIDE RAILS X 2. PT DENIES FURTHER NEEDS. WILL CONT TO MONITOR.
[2020-10-27] MEDS ORDERED: ELIQUIS2.5 MG PO (07:47)
[2020-10-27] MEDS ORDERED: PERCOCET 10-321 EAC1 PO (07:48)
[2020-10-27] MEDS ORDERED: VISTARIL50 MG PO (07:48)
[2020-10-27] MEDS ORDERED: ZOFRAN ODT4 MG/UDTAB PO (07:48)
--- NOTE | 2020-10-27 09:46 | NUR ---
DRESSING TO RIGHT HIP CHANGED PER ORDER. PT TOLERATED WELL. PIV TO LEFT HAND REMOVED WITH CATHETER TIP INTACT. DRESSING APPLIED. PT EXPRESSES NEED FOR SCAT TRANSPORTATION WITH PHARMACY STOP AND A WHEELCHAIR NEEDED WHEN ACCESSING SCAT BUS. ASHLEE WITH CASE MANAGEMENT NOTIFIED OF SCAT TRANSPORTATION AND NEEDS. PT AND PT FAMILY DENY FURTHER NEEDS/QUESTIONS/CONCERNS. WILL CONT TO MONITOR.
--- NOTE | 2020-10-27 10:21 | MORECARE ---
CASE MANAGEMENT DISCHARGE SUMMARY PATIENT: MARIBEL IZAGUIRRE UNIT: [id number] ADM DATE: 10/25/20 AGE: 55 : 63 SEX: M ROOM/BED: D.1213 AUTHOR: VIKI,DOC PHYSICIAN: REFERRING PHYSICIAN: REID CHASE DO DATE OF SERVICE: 10/27/20 Case Management Discharge Planning Summary COMMENTS ENTERED DATE: 10/27/20 10:00 CT COMMENT TYPE: Discharge Planning REVIEWER: Kelly Gong CM notified that patient needs [facility] transportation arranged [facility] [address] [place] [address] and then home with wheelchair. CM called [facility] and arranged transportation as requested. Confirmation [id number]. ENTERED DATE: 10/26/20 17:09 CT COMMENT TYPE: Discharge Planning REVIEWER: Kelly Gong CM called [facility] and scheduled patient therapy appointment for Saturday 12:40 - was soonest appointment available. Faxed orders and records as requested. CM met with patient and informed him of therapy appointment. Patient verbalized understanding and satisfaction with discharge plans. States he has walker now-CM observed walker in patient's room. CM put patient's copy of therapy appointment in hard chart for nurse to give him upon discharge with other DC instructions. Informed nurse, Gauri. Patient denies any other discharge planning needs at this time. ENTERED DATE: 10/25/20 16:23 CT COMMENT TYPE: Discharge Planning REVIEWER: Santi Reno CM met with patient to complete DC plan and to evaluate needs. Patient lives independently with his spouse, Ilda Izaguirre, [phone]. Patient stated that his home is safe and has electricity and running water. Patient stated that the home has a ramp to enter and he is able to manage the ramp without difficulty. Patient stated that he has no problems paying for medications and he fills his medications at [facility]. Patient stated that his primary care physician is Dr. Cagle. At discharge, the patient plans to return Home and feels this is a safe discharge. CM discussed availability of home health, rehab services, and medical equipment. Patient declined HHS, SNF, and IPR. Patient stated that he only has a cane and walker at home and he would like a bedside commode and shower chair through [facility]. Patient stated he would like [facility] PT with [facility]. Clinical Documents faxed to [facility]. CLAIRE signed for [facility]. CLAIRE placed in chart. Patient voiced no other needs at this time and is satisfied with DC plan. CM will continue to follow and will assist as needed with dc plans/needs. DCP REVIEW SUMMARY ANTICIPATED D/C DATE: 10/25/2020 EXPECTED LOS : 1 CASE STATUS: DCP Initiated INITIAL REVIEW: 10/25/2020 INITIAL REVIEWER: Santi Reno FINAL DISCHARGE DISPOSITION: : FINAL REVIEWER: FINAL REVIEW DATE: DCP Focus Questions & Answers DCP Evaluation QUESTION: ANSWER Patient and/or caregiver agree upon recommended discharge plan? : Yes Family / Caregiver's ability to cope with chronic illness: : a. Adequate (ability to meet patient's medical needs, ensures patient attends medical appts.) Patient's current cognitive status: : *Oriented to person, place, situation, time and present Patient's ability to cope with chronic illness : d. No chronic illness Patient gives permission to discuss discharge plans with: (name, relationship and number) : spouse, Ilda Izaguirre, [phone] Does the patient have the ability to pay for or attain post discharge needs / services? : Yes Functional screen assessment: : Basic needs can adequately be met by self Family / Caregiver's ability to cope with chronic illness: : a. Adequate (ability to meet patient's medical needs, ensures patient attends medical appts.) Physical Status: : Independent with ADL's Equipment needed for post hospitalization: : Shower Chair Equipment needed for post hospitalization: : Bedside Commode Is there a likelihood that the patient will require additional services to return to the preadmission environment? : Yes Living Arrangements: : Home with Spouse/Significant Other Patient with capacity for self-care or can be cared for in same environment as prior to hospitalization? : Yes Baseline cognitive status: : *Oriented to person, place, situation, time and present Physical environment modification needed / anticipated for discharge: : No Medication Management: : Patient states can read and understand medication labels Medication Management: : Patient states can afford medications Pharmacy name(s): : [facility] Does Patient have transportation to get home and to follow-up medical appointments when discharged from the hospital? : Yes Would patient like to participate in any Care Coordination programs (if applicable): : Not applicable Does the patient have electricity at home? : Yes Does the patient have running water in their house? : Yes Equipment in use: : Walker - Rolling Mental health screen: : No mental health history DCP Re-evaluation QUESTION: ANSWER Would patient like to participate in any Care Coordination programs (if applicable): : Not applicable PATIENT: MARIBEL IZAGUIRRE ENCOUNTER: [id number] MEDICAL RECORD#: [id number] ADMISSION DATE: 10/25/2020 DISCHARGE DATE: ATTENDING MD: REID APONTE : AGE: 55 MARITAL STATUS: M DC PLAN ID: [id number] FACILITY: [facility] PRINTED ON: 10/27/20 10:21 CT All edits/amendments must be made on the electronic document DICTATION DATE: 10/27/20 1021 WASTE COLLECTION DRIVER: MELIZA 10/27/20 1021 RPT#: [id number] DC DATE: STATUS: ADM IN [facility] [address] [place] [address] END OF REPORT
--- NOTE | 2020-10-27 11:33 | NUR ---
ALL DISCHARGE INSTRUCTIONS WRITTEN AND VERBAL COVERED WITH PT AND PT FAMILY MEMBER. (4) PRINTED RX GIVEN TO PT. PT DENIES FURTHER QUESTIONS/CONCERNS AT THIS TIME. ALL DISCHARGE PAPERS SIGNED BY PT. [facility] TRANSPORTATION NOTIFIED OF PT NEED. FALL PRECAUTIONS IN PLACE. PT AND PT FAMIYL DENY FURTHER NEEDS. WILL CONT TO MONITOR.
--- NOTE | 2020-10-27 11:41 | NUR ---
PT REFUSES TO WAIT FOR WHEELCHAIR PUSHING ASSITANCE AND STATES "THE BUS IS OUT THERE WAITING FOR ME ALREADY". PT ENCOURAGED TO WAIT FOR ASSISTNACE FROM HOSPITAL STAFF TO PUSH WHEELCHAIR AND ASSIST WITH BELONGINGS. PT CONTINUES TO REFUSE. PT FAMILY MEMBER HAS PERSONAL BELONGINGS AND PT ESCORTS SELF FROM ROOM VIA WHEELCHAIR BELONGING TO SCAT TRANSPORTATION. PT THANKS THIS NURSE FOR CARE GIVEN DURING THIS SHIFT AND DENIES FURTHER QUESTIONS/CONCERNS/NEEDS.
--- NOTE | 2020-10-27 12:12 | MORECARE ---
CASE MANAGEMENT DISCHARGE SUMMARY PATIENT: MARIBEL IZAGUIRRE UNIT: [id number] ADM DATE: 10/25/20 AGE: 55 : 63 SEX: M ROOM/BED: D.1213 AUTHOR: VIKI,DOC PHYSICIAN: REFERRING PHYSICIAN: REID CHASE DO DATE OF SERVICE: 10/27/20 Case Management Discharge Planning Summary COMMENTS ENTERED DATE: 10/27/20 10:00 CT COMMENT TYPE: Discharge Planning REVIEWER: Kelly Gong CM notified that patient needs [facility] transportation arranged for [facility] at [address] [place] [address] and then home with wheelchair. CM called [facility] and arranged transportation as requested. Confirmation [id number]. ENTERED DATE: 10/26/20 17:09 CT COMMENT TYPE: Discharge Planning REVIEWER: Kelly Gong CM called [facility] and scheduled patient therapy appointment for Saturday 12:40 - was soonest appointment available. Faxed orders and records as requested. CM met with patient and informed him of therapy appointment. Patient verbalized understanding and satisfaction with discharge plans. States he has walker now-CM observed walker in patient's room. CM put patient's copy of therapy appointment in hard chart for nurse to give him upon discharge with other DC instructions. Informed nurse, Gauri. Patient denies any other discharge planning needs at this time. ENTERED DATE: 10/25/20 16:23 CT COMMENT TYPE: Discharge Planning REVIEWER: Santi Reno CM met with patient to complete DC plan and to evaluate needs. Patient lives independently with his spouse, Ilda Izaguirre, [phone]. Patient stated that his home is safe and has electricity and running water. Patient stated that the home has a ramp to enter and he is able to manage the ramp without difficulty. Patient stated that he has no problems paying for medications and he fills his medications at [facility]. Patient stated that his primary care physician is Dr. Cagle. At discharge, the patient plans to return Home and feels this is a safe discharge. CM discussed availability of home health, rehab services, and medical equipment. Patient declined HHS, SNF, and IPR. Patient stated that he only has a cane and walker at home and he would like a bedside commode and shower chair through [facility]. Patient stated he would like [facility]patient PT with [facility]. Clinical Documents faxed to [facility]. CLAIRE signed for [facility] and Ale [facility]. CLAIRE placed in chart. Patient voiced no other needs at this time and is satisfied with DC plan. CM will continue to follow and will assist as needed with dc plans/needs. DCP REVIEW SUMMARY ANTICIPATED D/C DATE: 10/25/2020 EXPECTED LOS : 1 CASE STATUS: DCP Initiated INITIAL REVIEW: 10/25/2020 INITIAL REVIEWER: Santi Reno FINAL DISCHARGE DISPOSITION: : FINAL REVIEWER: FINAL REVIEW DATE: DCP Focus Questions & Answers DCP Evaluation QUESTION: ANSWER Patient and/or caregiver agree upon recommended discharge plan? : Yes Family / Caregiver's ability to cope with chronic illness: : a. Adequate (ability to meet patient's medical needs, ensures patient attends medical appts.) Patient's current cognitive status: : *Oriented to person, place, situation, time and present Patient's ability to cope with chronic illness : d. No chronic illness Patient gives permission to discuss discharge plans with: (name, relationship and number) : spouse, Ilda Izaguirre, [phone] Does the patient have the ability to pay for or attain post discharge needs / services? : Yes Functional screen assessment: : Basic needs can adequately be met by self Family / Caregiver's ability to cope with chronic illness: : a. Adequate (ability to meet patient's medical needs, ensures patient attends medical appts.) Physical Status: : Independent with ADL's Equipment needed for post hospitalization: : Shower Chair Equipment needed for post hospitalization: : Bedside Commode Is there a likelihood that the patient will require additional services to return to the preadmission environment? : Yes Living Arrangements: : Home with Spouse/Significant Other Patient with capacity for self-care or can be cared for in same environment as prior to hospitalization? : Yes Baseline cognitive status: : *Oriented to person, place, situation, time and present Physical environment modification needed / anticipated for discharge: : No Medication Management: : Patient states can read and understand medication labels Medication Management: : Patient states can afford medications Pharmacy name(s): : [facility] Does Patient have transportation to get home and to follow-up medical appointments when discharged from the hospital? : Yes Would patient like to participate in any Care Coordination programs (if applicable): : Not applicable Does the patient have electricity at home? : Yes Does the patient have running water in their house? : Yes Equipment in use: : Walker - Rolling Mental health screen: : No mental health history DCP Re-evaluation QUESTION: ANSWER Would patient like to participate in any Care Coordination programs (if applicable): : Not applicable PATIENT: MARIBEL IZAGUIRRE ENCOUNTER: [id number] MEDICAL RECORD#: [id number] ADMISSION DATE: 10/25/2020 DISCHARGE DATE: 10/27/2020 ATTENDING MD: REID APONTE : AGE: 55 MARITAL STATUS: M DC PLAN ID: [id number] FACILITY: [facility] PRINTED ON: 10/27/20 12:12 CT All edits/amendments must be made on the electronic document DICTATION DATE: 10/27/201211 SODA DISPENSER: MELIZA 10/27/201211 RPT#: [id number] DC DATE:10/27/20 STATUS: DIS IN [facility] [address] [place] [address] END OF REPORT
== END 2020-10-27 12:01 | disposition home or self-care (01) ==
LOC: D.OPS 06:20 → D.M3 10:20 → D.OPS 10:45 → D.M3 10:55 → OBSVTIME 10:55 → D.OPS 11:00 → D.M3 10-27 12:01
PROVIDERS: Family Medicine; ADMIT Orthopaedic Surgery; ATTEND Orthopaedic Surgery
DX: M16.11 Unilateral primary osteoarthritis, right hip (principal); I10 Essential (primary) hypertension; G62.9 Polyneuropathy, unspecified; F32.9 Major depressive disorder, single episode, unspecified; H40.9 Unspecified glaucoma; Z87.891 Personal history of nicotine dependence; D64.9 Anemia, unspecified

== ENCOUNTER 2020-11-12 17:17 | Inpatient (IN) | payer OTHER ==
[~2020-11-12] VITALS: Ht 175.3 cm; Wt 99.5 kg
--- NOTE | ~2020-11-12 | HEMODYNAMI ---
PATIENT:MARIBEL STOKES MEDICAL RECORD: [id number] : 63 LOCATION:[facility] D.[address] [facility]# [id number] ADMISSION DATE: 11/12/20 Generatedon:120:07 Patient name: MARIBEL STOKES Patient #: [id number] SSN: [id number] : 1965 Date of study: 11/12/2020 Page: Of Hemodynamic Procedure Report Patient Data Patient Demographics Procedure consent was obtained First Name: MARIBEL Gender: Male Last Name: KIKE : 1965 Middle Initial: A Age: 55 year(s) Patient #: [id number] Race: Black SSN: [id number] Additional ID: [id number] Contact details Address: [address] [place] [address] State: [place] City: [place] Zip code: [address] Past Medical History Allergies Allergen Reaction Date Comments Reported Other allergy 02/08/2020 codeine Admission Admission Data Admission Date: 11/12/2020 Admission Time: 18:37 Arrival Date: 11/12/2020 Arrival Time: 17:17 Admit Source: Emergency Insurance Payor: Private department health insurance Room #: D.2118 [facility] #: [id number] Height (in.): 68.9 BSA: 2.14 (m2) Height (cm.): 175 BMI: 32.33 (kg/m2) Weight (lbs.): 218.26 Weight (kg.): 99 Lab Results Lab Result Date: 11/12/2020 Lab Result Time: 0:00 Biochemistry Name Units Result Min Max BUN mg/dl 8 --(*---)-- 7 18 Creatinine mg/dl 1.3 --(---*)-- 0.6 1.3 CBC Name Units Result Min Max Hemoglobin g/dl 11.9 *-(----)-- 13.5 17.5 Procedure Procedure Types Cath Procedure Diagnostic Procedure [facility] LH w/Coronaries Sedation Charges Moderate Sedation 40-54 minutes PCI Procedure Hemochron ACT Test AMI/SVG/INJECTION MOLDING PROCESS TECHNICIAN PTCA or Stent PTCA PTCA Initial Procedure Description Procedure Date Procedure Date: 11/12/2020 Procedure Start Time: 19:17 Procedure End Time: 20:02 Procedure Staff Name Function Fortino Casanova MD Performing Physician Pauline Powell RT Monitor Linda Mcwilliams RT Scrub Viktor Gong RN Nurse Selene Toussaint RN Nurse Procedure Data Cath Procedure Fluoroscopy Diagnostic fluoroscopy Total fluoroscopy Time: 9.1 time: 9.1 min min Diagnostic fluoroscopy Total fluoroscopy dose: dose: 1102 mGy 1102 mGy Contrast Material Contrast Material Type Amount (ml) Isovue 300 150 Entry Location Entry Primary Successful Side Size Upsize Upsize Entry Closure Jordan ccessful Closure Location (Fr) 1 (Fr) 2 (Fr) Remarks Device Remarks Femoral Left 6 Fr Manual artery Short Compression Femoral Right 6 Fr Exoseal artery Short Estimated blood loss: 5 ml Diagnostic catheters Device Type Used For End Catheter Placement MULTIPACK 3DRC 5Fr Right Coronary catheter Angiography MULTIPACK Pigtail 5 Fr LV Angiography catheter Procedure Complications No complications Procedure Medications Medication Administration Route Dosage 0.9% NaCl I.V. 100 ml/hr Oxygen etCO2 Nasal cannula 2 l/min Heparin Flush Bag added to field 2 bags (1000units/500ml NS) Lidocaine 2% added to field 20 Benadryl I.V. 50 mg Versed I.V. 1 mg Fentanyl I.V. 50 mcg Heparin Bolus I.V. 5000 units Versed I.V. 1 mg Fentanyl I.V. 50 mcg Integrilin (Bolus I.V. 9 ml 2mg/ml) Plavix P.O. 600 mg Hemodynamics Rest BSA: 2.14 (m2) O2 Consumption: Estimated: 243.1 (ml/min) O2 Consumption indexed: Estimated:113.6 (ml/min/m) Heart Rate: 58 (bpm) Pressure Samples Time Site Value (mmHg) Purpose Heart Use Rate(bpm) 19:45 LV 113/19,22 Snapshot 87 Gradients Valve Time Site Site Mean SEP/DFP Peak To Heart Use 1 2 (mmHg) (sec/min) Peak Rate (mmHg) (bpm) Aortic 19:46 LV AO 90 Snapshots Pre Cath Intra NCS Post Cath Vital Signs Time Heart Resp SPO2 etCO2 NIBP (mmHg) Rhythm Pain Sedation Rate (ipm) (%) (mmHg) Status Level (bpm) 19:15:53 61 20 100 26.3 172/98(145) NSR w/ ST 0 (11) 10(A) Elevation , No pain 19:20:26 57 15 100 24 168/89(133) NSR w/ ST 0 (11) 10(A) Elevation , No pain 19:24:48 59 18 100 28.5 153/81(116) NSR w/ ST 0 (11) 9(A) Elevation , No pain 19:29:10 58 15 100 0 142/87(113) NSR w/ ST 0 (11) 9(A) Elevation , No pain 19:33:30 60 14 100 0 147/88(119) NSR w/ ST 0 (11) 9(A) Elevation , No pain 19:37:54 61 16 100 0 154/83(127) NSR w/ ST 0 (11) 9(A) Elevation , No pain 19:42:20 64 18 100 0 160/87(135) NSR w/ ST 0 (11) 9(A) Elevation , No pain 19:46:42 63 17 100 0 167/88(134) NSR w/ ST 0 (11) 9(A) Elevation , No pain 19:51:11 59 13 100 0 169/92(140) NSR w/ ST 0 (11) 9(A) Elevation , No pain 19:55:41 56 13 100 0 178/93(146) NSR w/ ST 0 (11) 9(A) Elevation , No pain 20:00:12 58 10 99 36.1 169/88(138) NSR w/ ST 0 (11) 10(A) Elevation , No pain Medications Time Medication Route Dose Verified Delivered Reason Notes Effectiveness by by 19:05:16 0.9% NaCl I.V. 100 Fortino Viktor used for ml/hr St Jcarlos Gong RN procedure 19:05:24 Oxygen etCO2 2 Fortino Viktor used for Nasal l/min St Jcarlos Gong RN procedure cannula 19:05:34 Heparin Flush added 2 Fortino Viktor used for Bag to bags St Jcarlos Gong RN procedure (1000units/500ml field GO NS) 19:05:43 Lidocaine 2% added 20ml Fortino Camaray for local to vial St Jcarlos Gong RN anesthetic field GO 19:17:47 Benadryl I.V. 50 mg Fortino Viktor used for St Jcarlos Gong RN procedure 19:17:54 Versed I.V. 1 mg Fortino Viktor for sedation St Jcarlos Gong RN, MD 19:18:01 Fentanyl I.V. 50 Fortino Viktor for sedation mcg St Jcarlos Gong RN, MD 19:19:21 Heparin Bolus I.V. 5000 Fortino [address] for units St Jcarlos Gong RN anticoagulation 19:21:12 Versed I.V. 1 mg Fortino Viktor for sedation St Jcarlos Gong RN, MD 19:21:15 Fentanyl I.V. 50 Fortino Viktor for sedation mcg St Jcarlos Gong RN, MD 19:31:37 Integrilin I.V. 9 ml Fortino Camaray for 1 mL (Bolus 2mg/ml) St Jcarlos Gong RN antiplatelet wasted MD therapy 20:02:56 Plavix P.O. 600 Fortino Viktor for mg St Jcarlos Gong RN antiplatelet MD therapy Procedure Log Time Note 19:02:55 Informed consent obtained and on chart 19:03:06 Admit Source: Emergency department 19:03:09 Patient Height : 68.9 inches 19:03:12 Patient Weight : 218.26 lbs 19:03:22 Arrival Date: 11/12/2020 5:17:00 PM 19:03:42 Insurance Payor : Private health insurance 19:04:14 Lab Result : BUN 8 mg/dl 19:04:14 Lab Result : Hemoglobin 11.9 g/dl 19:04:14 Lab Result : Creatinine 1.3 mg/dl 19:04:17 Diagnostic Cath Status : Emergency 19:04:45 Procedure Status Emergent Heart Cath (AMI). 19:04:47 Selene Toussaint RN sent for patient. Start room use. 19:04:48 Time tracking: Regular hours (M-F 7:00 - 5:00) 19:04:53 Plan of Care:Hemodynamics will remain stable., Cardiac rhythm will remain stable., Comfort level will be maintained., Respiratory function will remain adequate., Patient/ family verbilizes understanding of procedure., Procedure tolerated without complication., Recovers from procedure without complications.. 19:05:16 0.9% NaCl 100 ml/hr I.V. was administered by Viktor Gong RN; used for procedure; Verbal order read back and verified. 19:05:24 Oxygen 2 l/min etCO2 Nasal cannula was administered by Viktor Beltran RN; used for procedure; Verbal order read back and verified. 19:05:34 Heparin Flush Bag (1000units/500ml NS) 2 bags added to field was administered by Viktor Gong RN; used for procedure; Verbal order read back and verified. 19:05:43 Lidocaine 2% 20ml vial added to field was administered by Viktor Gong RN; for local anesthetic; Verbal order read back and verified. 19:14:35 Vital chart was started 19:15:12 Patient received from ED to CCL 1 Alert and oriented. Tansferred to table in Supine position. 19:15:13 Warm blankets applied, and rebecca hugger turned on for patient comfort. 19:15:14 Correct patient and procedure confirmed by team. 19:15:14 ECG and BP/O2 sat monitors applied to patient. 19:15:15 Baseline sample Acquired. 19:15:20 Rhythm: sinus rhythm 19:15:22 Full Disclosure recording started 19:15:25 H&P Date Dictated: 11/12/2020 Emergent; H&P N/A. 19:15:27 Pre-procedure instructions explained to patient. 19:15:27 Pre-op teaching completed and patient verbalized understanding. 19:15:30 Family unavailable. 19:15:31 Patient NPO since Midnight. 19:15:33 Is the patient allergic to Iodine/contrast media? No. 19:15:34 Was the patient premedicated? Yes 19:15:36 Is patient on blood thinner?Yes 19:15:38 ACC The patient was administered the following blood thiners within the last 24 hours: Anum 19:15:41 Patient diabetic? No. 19:15:45 Previous problem with sedation/anesthesia? No ? 19:15:46 Snore? Yes 19:15:47 Sleep apnea? No 19:15:49 Deviated septum? No 19:15:50 Opens mouth fully? Yes 19:15:51 Sticks out tongue? Yes 19:15:53 Airway obstruction? No ? 19:15:57 Dentures? Yes OUT 19:16:00 Pre procedure: right dorsailis pedis pulse 2+ Normal; easily identifiable; not easily obliterated 19:16:03 Pre procedure: left dorsailis pedis pulse 2+ Normal; easily identifiable; not easily obliterated 19:16:06 Patient pain scale 9/10 ?. 19:16:12 IV patent on arrival in right forearm with 0.9% NaCl at O. 19:16:14 Lab results completed and on chart. 19:16:19 Left groin area was prepped with chlora-prep and draped in sterile fashion 19:16:20 Alarms reviewed by R. N. 19:16:21 Sharps counted by scrub and verified by R.N. 19:16:21 Physician arrived 19:16:22 --------ALL STOP TIME OUT------ 19:16:24 Final Timeout: patient, procedure, and site verified with staff and physician. All members of the team are in agreement. 19:16:26 Left groin site verified by team. 19:16:30 Fire Safety Assessment: A--An alcohol-based skin anteseptic being used preoperatively., C--Open oxygen or nitrous oxide is being used., D--An ESU, laser, or fiber-optic light is being used. 19:16:35 Physical assessment completed. ASA score P 3 - A patient with severe systemic disease as per Fortino Casanova MD. 19:16:39 Sedation plan: IV Moderate Sedation Medication:Versed, Fentanyl 19:16:47 2) 60-89 Mildly reduced kidney function, and other findings (as for stage 1) point to kidney disease. 19:17:08 Use device set Femoral Dx 19:17:09 ACIST Syringe (02241) opened to sterile field. 19:17:09 Bag Decanter (2001S) opened to sterile field. 19:17:09 Medline Cath Pack ([id number]) opened to sterile field. 19:17:10 ACIST Hand Control (78255) opened to sterile field. 19:17:11 ACIST Manifold (23028) opened to sterile field. 19:17:11 DIAGNOSTIC Multipack 5Fr catheter set ([id number]) opened to sterile field. 19:17:11 Tegaderm 4 x 4 (1626W) opened to sterile field. 19:17:13 EMERALD Guide Wire (283-360) opened to sterile field. 19:17:25 Procedure started. 19:17:31 Local anesthetic to left femerol artery with Lidocaine 2% by Fortino Casanova MD.INITIAL ACCESS ONLY 19:17:39 A 6 Fr Short sheath was inserted into the Left Femoral artery 19:17:47 Benadryl 50 mg I.V. was administered by Viktor Gong RN; used for procedure; Verbal order read back and verified. 19:17:54 Versed 1 mg I.V. was administered by Viktor Gong RN; for sedation; Verbal order read back and verified. 19:17:58 SHEATH 6FR Lodgepole (QAF772) opened to sterile field. 19:17:58 INFLATOR Merit BasixCompak (RA4390) opened to sterile field. 19:17:59 BMW 300cm Butler 2 J wire ([id number]) opened to sterile field. 19:18:01 Fentanyl 50 mcg I.V. was administered by Viktor Gong RN; for sedation; Verbal order read back and verified. 19:19:21 Heparin Bolus 5000 units I.V. was administered by Viktor Gong RN; for anticoagulation; Verbal order read back and verified. 19:21:12 Versed 1 mg I.V. was administered by Viktor Gong RN; for sedation; Verbal order read back and verified. 19:21:15 Fentanyl 50 mcg I.V. was administered by Viktor Gong RN; for sedation; Verbal order read back and verified. 19:21:31 IV Extension Set opened to sterile field. 19:21:54 GUIDE 6FR JL 4.0 catheter ([id number]) opened to sterile field. 19:21:54 GLIDE WIRE ANGLE 260cm (IZ8049) opened to sterile field. 19:25:21 SHEATH 6FR Lodgepole (KVI775) opened to sterile field. 19:27:02 UNABLE TO GAIN LEFT FEMORAL ACCESS; PREPPING RIGHT FEMORAL 19:27:08 Local anesthetic to left femerol artery with Lidocaine 2% by Fortino Casanova MD.ADDITIONAL ACCESS 19:27:18 A 6 Fr Short sheath was inserted into the Right Femoral artery 19:28:08 6 Fr JL 4 guide catheter was inserted over the wire 19:31:37 Integrilin (Bolus 2mg/ml) 9 ml I.V. was administered by Viktor Gong RN; for antiplatelet therapy; 1 mL wasted Verbal order read back and verified. 19:36:01 Inflate balloon Inflation number: 1 A EUPHORA 3.0 x 15 Balloon ([id number]) was prepped and advanced across the Prox LAD 90, then inflated to 14 ANDREY for 0:30 (min:sec) 0. 19:38:00 Balloon removed over the wire. 19:40:06 Inflation number: 2 The EUPHORA 3.0 x 15 Balloon ([id number]) was reinflated across the Prox LAD 90, to 10 ANDREY for 0:30 (min:sec) 0. 19:40:53 Balloon removed over the wire. 19:40:54 Wire removed. 19:40:54 Guide catheter removed. 19:41:02 A MULTIPACK 3DRC 5Fr catheter was advanced over the wire and used for Right Coronary Angiography. 19:42:32 EXOSEAL 6Fr (EX600) opened to sterile field. 19:43:13 RCA angiography performed. 19:43:16 Injector settings: Ml/sec: 3, Volume: 6, 19:43:18 Catheter removed. 19:43:34 A MULTIPACK Pigtail 5 Fr catheter was advanced over the wire and used for LV Angiography. 19:45:25 LV hemodynamics recorded. 19:45:26 LV gram done using FARIA 19:45:28 Injector settings: Ml/sec: 5, Volume: 15, 19:46:01 EF : 45 % 19:46:08 Catheter removed. 19:47:45 ACT drawn and resulted at ? seconds. (normal therapeutic range 180-240 seconds). 19:47:47 ACT drawn and resulted at 219 seconds. (normal therapeutic range 180-240 seconds). 19:48:09 Sheath removed intact; hemostasis achieved with Manual Compression to the Left Femoral artery. 19:48:20 Sheath removed intact; hemostasis achieved with Exoseal to the Right Femoral artery. 19:58:01 Procedure ended.(Physican Out) 19:58:36 Fluoroscopy time 09.10 minutes. 19:58:40 Fluoroscopy dose: 1102 mGy 19:58:40 Flurop Dose total: 1102 19:58:46 Dose Area Product 02170 mGy/cm. 19:58:50 Contrast amount:Isovue 300 150ml. 19:58:52 Maximum allowable dose exceeded? No. 19:58:52 Sharps counted by scrub and verified by R.N. 19:59:54 Insertion/operative site no bleeding no hematoma. 19:59:57 Post-op/insertion site Right Femoral artery dressed using a 4 x 4 and Tegaderm. 20:00:00 Post-op/insertion site Left Femoral artery dressed using a 4 x 4 and Tegaderm. 20:00:02 Post Procedure Pulses reassessed and unchanged 20:00:06 Post procedure rhythm: sinus rhythm 20:00:09 Estimated blood loss: 5 ml 20:00:10 Post procedure instruction explained to patient.Patient verbalizes understanding. 20:00:11 Patient needs reinforcement of post procedure teaching. 20:01:18 Procedure type changed to Cath procedure, Diagnostic procedure, LHC, [facility] w/Coronaries, Sedation Charges, Moderate Sedation 40-54 minutes, PCI procedure, Hemochron ACT Test, AMI/SVG/INJECTION MOLDING PROCESS TECHNICIAN PTCA or Stent, PTCA, PTCA Initial 20:01:20 Procedure and supply charges have been captured, reviewed, submitted and are correct. 20:01:25 Procedure Complication : No complications 20:02:00 Vital chart was stopped 20:02:03 [facility] Findings: MVD- PCI performed (see procedure note) 20:02:04 Operative report dictated upon procedure completion. 20:02:05 See physician's report for complete and final results. 20:02:07 Report given to Med II. 20:02:10 Patient transfered to Med II with Stretcher. 20:02:11 Procedure ended. 20:02:11 Full Disclosure recording stopped 20:02:20 ACC-PCI Only Patient was given prescriptions, or instructed by Fortino Casanova MD to start/continue the following medications upon discharge: Plavix 20:02:21 End room use (Document Last) 20:02:56 Plavix 600 mg P.O. was administered by Viktor Gong RN; for antiplatelet therapy; Verbal order read back and verified. Intervention Summary Intervention Notes Time ActionType Lesion and Equipment Action# Pressure Duration Attributes Used 19:36:01 Inflate Prox LAD EUPHORA 1 14 00:30 balloon 3.0 x 15 Balloon ([id number]) 19:40:06 Reinflate Prox LAD EUPHORA 2 10 00:30 balloon 3.0 x 15 Balloon ([id number]) Device Usage Item Name Manufacture Quantity Catalog Hospital Part Current Minimal L ot# / Number Charge Number Stock Stock Serial# Code ACIST Acist 1 76436 194232 101236 628981 20 Looklet (23418) Pick a Student Bag Microtek 1 746394 72864 307184 5 Decanter Medical Inc. () Medline Medline 1 [id number] 770998 34027 044904 5 Cath Pack ([id number]) ACIST Hand Acist 1 31884 277797 777284 036481 5 Control Medical (50811) Systems Inc ACIST Acist 1 82816 355232 936465 032899 5 Manifold Medical (83400) Systems Inc DIAGNOSTIC Cardinal 1 JU3524 176018 29940 809383 30 Multipack Health 5Fr catheter set (ZT6342) Tegaderm 4 3M 1 1626W 441537 579699 730938 5 x 4 (1626W) EMERALD Cardinal 1 502-455 251479 740700 209420 5 Guide Wire TimeCast (502-455) SHEATH 6FR Terumo 2 UUY034 145336 358205 661332 40 Lodgepole (TPO797) INFLATOR Merit 1 ZK4797 223254 548513 620924 15 [facility] BasixCompak (LS8843) BMW 300cm Cam 1 [id number] 760181 274286 961161 5 Butler 2 Vascular J wire (7138223K) IV Hospira 1 84471-14 557997 06148 481772 5 Extension Set GUIDE 6FR Medtronic 1 [id number] 475515 20025 646193 1 JL 4.0 catheter (QV7FL38) GLIDE WIRE Terumo 1 FN5872 942027 878934 607822 5 ANGLE 260cm (IE6663) EUPHORA 3.0 Medtronic 1 [id number] 333370 012541 496715 5 2 [id number] x 15 Balloon ([id number]) MULTIPACK Cardinal 1 942650 5 3DRC 5Fr Health catheter EXOSEAL 6Fr Cardinal 1 EX600 897355 816893 502693 10 (EX600) Health MULTIPACK Cardinal 1 877975 5 Pigtail 5 Health Fr catheter Signature Audit Dumont Stage Time Signature Unsigned Intra-Procedure 11/12/2020 Linda Mcwilliams 8:06:25 PM RT(R) Intra-Procedure 11/12/2020 Viktor Gong RN 8:06:47 PM Intra-Procedure 11/12/2020 Fortino Mcmillan 8:07:05 PM Jcarlos [place] [id number] [place], [place] [id number]
[~2020-11-12 17:17] MED LIST changes: +ELIQUIS2.5 MG PO; +PERCOCET 10-321 EAC1 PO; -PREDNISOLONE 110 ML; +PREDNISOLONE 110 ML OP; -TRUSOPT 2 % OPT10 ML; +TRUSOPT 2 % OPT10 ML OP; +VISTARIL50 MG PO; -XALATAN 0.0052.5 ML; +XALATAN 0.0052.5 ML OP; +ZOFRAN ODT4 MG/UDTAB PO
[2020-11-12 17:28] VITALS: BP 186/92
[2020-11-12 17:39] LABS: HEMATOCRIT 36.6 % (42.0-54.0); HEMOGLOBIN 11.9 g/dL (13.5-17.5); LYMPHOCYTES 16.1 % (15-50); MCH 29.5 pg (26.0-34.0); MCHC 32.4 g/dL (31.0-37.0); MEAN PLATELET VOLUME 7.5 fL (7.4-10.4); NEUTROPHILS 74.9 % (40-80); RBC 4.02 10x6/uL (4.20-6.10); RDW 14.9 % (11.5-14.5)
[2020-11-12 17:40] VITALS: BP 130/87
[2020-11-12 17:40] LABS: PLATELET COUNT 481 10x3/uL (130-400)
[2020-11-12 17:46] VITALS: BP 139/84
[2020-11-12 17:47] LABS: APTT 33.7 SECONDS (22.8-39.4); INR 1.2 (0.85-1.17); PROTIME 14.1 SECONDS (11.6-15.0)
[2020-11-12 17:48] LABS: CALC OSMOLALITY 279 mosm/kg (275-300); CALCIUM 9.1 mg/dL (8.5-10.1); CARBON DIOXIDE 27.2 mmol/L (21.0-32.0); CHLORIDE - SERUM 106 mmol/L (98-107); CREATININE - SERUM 1.3 mg/dL (0.6-1.3); GLUCOSE 123 mg/dL (74-106); POTASSIUM - SERUM 4.5 mmol/L (3.5-5.1); SODIUM 141 mmol/L (136-145); UREA NITROGEN 8 mg/dL (7-18); eGFR NON AFRICAN AMERICAN 61 mL/min (90-120)
[2020-11-12 17:50] VITALS: BP 126/80
[2020-11-12 17:55] VITALS: BP 132/80
--- NOTE | 2020-11-12 17:55 | NUR ---
JOVAN KIRK AT BEDSIDE. NTG X 3 Q 5 MINS GIVEN WITH ONLY MINIMAL EFFECT ON CHEST PAIN.
[2020-11-12 18:09] LABS: ALBUMIN 3.4 g/dL (3.4-5.0); ALKALINE PHOSPHATASE 120 U/L (30-120); ALT (SGPT) 28 U/L (10-68); BILIRUBIN - TOTAL 0.56 mg/dL (0.2-1.3); CKMB 15.3 U/L (0.0-3.6); CREATINE KINASE 198 UL (21-232); PROTEIN - SERUM 7.2 g/dL (6.4-8.2)
--- NOTE | 2020-11-12 18:19 | NUR ---
MS 2MG IV GIVEN FOR CHEST PAIN 12/24.
[2020-11-12 18:23] LABS: TROPONIN-I 1.739 ng/mL (0.000-0.060)
--- NOTE | 2020-11-12 18:58 | NUR ---
CONSENTS FOR CATH PROCEDURE AND BLOOD TRANSFUSION EXPLAINED AND SIGNED BY PATIENT. IS AT BEDSIDE.
--- NOTE | 2020-11-12 19:05 | NUR ---
TO INTENSIVIST WITH INTENSIVIST STAFF.
[2020-11-12 19:09] LABS: CHOL - HDL RATIO 2.8 ratio (2.3-4.9); LDL-HDL RATIO 1.6 ratio (1.5-3.5)
[2020-11-13 01:14] VITALS: BP 145/70
[2020-11-13 02:45] VITALS: BP 140/70; Ht 175.3 cm; Wt 99.5 kg
[2020-11-13 05:15] LABS: BASOPHILS 0.5 % (0-2); EOSINOPHILS 1.2 % (0-7); HEMATOCRIT 32.6 % (42.0-54.0); HEMOGLOBIN 10.9 g/dL (13.5-17.5); LYMPHOCYTES 19.6 % (15-50); MCHC 33.4 g/dL (31.0-37.0); MCV 89.8 fL (80.0-100.0); MEAN PLATELET VOLUME 7.6 fL (7.4-10.4); MONOCYTES 11.2 % (2-11); NEUTROPHILS 67.5 % (40-80); PLATELET COUNT 405 10x3/uL (130-400); RBC 3.63 10x6/uL (4.20-6.10); RDW 14.8 % (11.5-14.5); WBC 8.1 10x3/uL (4.8-10.8)
[2020-11-13 05:38] LABS: ALBUMIN 2.9 g/dL (3.4-5.0); ANION GAP 10.1 mmol/L (8-16); BILIRUBIN - TOTAL 0.46 mg/dL (0.2-1.3); CALCIUM 8.6 mg/dL (8.5-10.1); CARBON DIOXIDE 28.9 mmol/L (21.0-32.0); CREATININE - SERUM 1.3 mg/dL (0.6-1.3); PHOSPHOROUS 3.9 mg/dL (2.5-4.9); PROTEIN - SERUM 6.3 g/dL (6.4-8.2)
[2020-11-13 06:30] VITALS: BP 125/80
--- NOTE | 2020-11-13 07:20 | NUR ---
RECIEVE REPORT. ALERT AND ORIENTED X4. SINUS MEMO 54 ON TELEMETRY. DENIES ANY NEEDS. CONTINUE PLAN OF CARE AND SAFETY PRECAUTIONS.
[2020-11-13 12:28] VITALS: BP 117/73
[2020-11-13] MEDS ORDERED: PLAVIX75 MG PO (14:19)
--- NOTE | 2020-11-13 14:27 | NUR ---
CALLED DR CERNA RE PT'S NEED FOR ASPIRIN WITH PLAVIX, PT IS ON ELIQUIS FROM HIP SURGERY. PER DR CERNA REC NO ASA; COMPLETE ONE MONTH OF PLAVIX AND THEN BEGIN ASA.
--- NOTE | 2020-11-13 16:07 | NUR ---
ALERT AND ORIENTED X4. SITTING UP IN BED. DC LT AC IV TIP INTACT. DISCHARGE INSTRUCTIONS GIVEN VERBALLY AND WRITTEN. DISCHARGE PAPERS SIGNED ON CHART. RT HIP DRESSING CHANGED. ESCORT TO RIDE VIA WHEELCHAIR. REMAINS FREE FROM INJURY.
--- NOTE | 2020-11-13 19:34 | MORECARE ---
CASE MANAGEMENT DISCHARGE SUMMARY PATIENT: MARIBEL STOKES UNIT: [id number] ADM DATE: 11/12/20 AGE: 55 : 63 SEX: M [facility] AUTHOR: VIKI,DOC PHYSICIAN: REFERRING PHYSICIAN: KHADIJAH ATKINS MD DATE OF SERVICE: 11/13/20 Case Management Discharge Planning Summary DCP REVIEW SUMMARY ANTICIPATED D/C DATE: 11/13/2020 EXPECTED LOS : 1 CASE STATUS: DCP Initiated INITIAL REVIEW: 11/12/2020 INITIAL REVIEWER: Santi Reno FINAL DISCHARGE DISPOSITION: : FINAL REVIEWER: FINAL REVIEW DATE: DCP Focus Questions & Answers QUESTION: ANSWER : PATIENT: MARIBEL STOKES ENCOUNTER: [id number] MEDICAL RECORD#: [id number] ADMISSION DATE: 11/12/2020 DISCHARGE DATE: 11/13/2020 ATTENDING MD: KHADIJAH HERRERA : AGE: 55 MARITAL STATUS: M DC PLAN ID: [id number] FACILITY: [facility] PRINTED ON: 11/13/20 19:34 CT All edits/amendments must be made on the electronic document DICTATION DATE: 11/13/201933 MEDICAL MANAGEMENT SPECIALIST: MELIZA 11/13/201933 RPT#: [id number] DC DATE:11/13/20 STATUS: DIS IN [facility] [address] [place] [address] END OF REPORT
--- NOTE | 2020-11-13 19:45 | MORECARE ---
CASE MANAGEMENT DISCHARGE SUMMARY PATIENT: MARIBEL IZAGUIRRE UNIT: [id number] ADM DATE: 11/12/20 AGE: 55 : 63 SEX: M ROOM/BED: D.0136 AUTHOR: TONYA DREW PHYSICIAN: REFERRING PHYSICIAN: KHADIJAH ATKINS MD DATE OF SERVICE: 11/13/20 Case Management Discharge Planning Summary COMMENTS ENTERED DATE: 11/13/20 19:38 CT COMMENT TYPE: Discharge Planning REVIEWER: Santi Reno CM met with patient to complete DC plan and to evaluate needs. Patient lives independently with his , Ambreen Izaguirre, . Patient stated that his home is safe and has electricity and running water. Patient stated that the home has a ramp and he is able to manage entering the home without difficulty. Patient stated that he has no problems paying for medications and he fills his medications at [facility] on [address] [place] [address]. Patient stated that his primary care physician is Dr. Cagle. At discharge, the patient plans to return home and feels this is a safe discharge. CM discussed availability of home health, rehab services, and medical equipment. Patient declined HHS, SNF, IPR, and DME. Patient stated that he has a cane, walker, and Bedside commode. Patient voiced no other needs at this time and is satisfied with DC plan. CM will continue to follow and will assist as needed with dc plans/needs. [facility] REVIEW SUMMARY ANTICIPATED D/C DATE: 11/13/2020 EXPECTED LOS : 1 CASE STATUS: DCP Initiated INITIAL REVIEW: 11/12/2020 INITIAL REVIEWER: Santi Reno FINAL DISCHARGE DISPOSITION: : FINAL REVIEWER: FINAL REVIEW DATE: OKP Focus Questions & Answers DCP Evaluation QUESTION: ANSWER Patient gives permission to discuss discharge plans with: (name, relationship and number) : , Ambreen Izaguirre, Patient's ability to cope with chronic illness : d. No chronic illness Patient's current cognitive status: : *Oriented to person, place, situation, time and present Family / Caregiver's ability to cope with chronic illness: : a. Adequate (ability to meet patient's medical needs, ensures patient attends medical appts.) Patient and/or caregiver agree upon recommended discharge plan? : Yes Physical Status: : Independent with ADL's Family / Caregiver's ability to cope with chronic illness: : a. Adequate (ability to meet patient's medical needs, ensures patient attends medical appts.) Functional screen assessment: : Basic needs can adequately be met by self Does the patient have the ability to pay for or attain post discharge needs / services? : Yes Living Arrangements: : Home with Spouse/Significant Other Is there a likelihood that the patient will require additional services to return to the preadmission environment? : No Equipment needed for post hospitalization: : None Baseline cognitive status: : *Oriented to person, place, situation, time and present Patient with capacity for self-care or can be cared for in same environment as prior to hospitalization? : Yes Physical environment modification needed / anticipated for discharge: : No Medication Management: : Patient states can afford medications Medication Management: : Patient states can read and understand medication labels Pharmacy name(s): : [facility] on [address] [place] [address] Does Patient have transportation to get home and to follow-up medical appointments when discharged from the hospital? : Yes Would patient like to participate in any Care Coordination programs (if applicable): : Not applicable Does the patient have electricity at home? : Yes Does the patient have running water in their house? : Yes Equipment in use: : Bedside Commode Equipment in use: : Cane - Single Leg Equipment in use: : Walker - Rolling Other Equipment comments: : RAMP Mental health screen: : No mental health history DCP Re-evaluation QUESTION: ANSWER Would patient like to participate in any Care Coordination programs (if applicable): : Not applicable PATIENT: MARIBEL IZAGUIRRE ENCOUNTER: [id number] MEDICAL RECORD#: [id number] ADMISSION DATE: 11/12/2020 DISCHARGE DATE: 11/13/2020 ATTENDING MD: KHADIJAH HERRERA : AGE: 55 MARITAL STATUS: M DC PLAN ID: [id number] FACILITY: [facility] PRINTED ON: 11/13/20 19:45 CT All edits/amendments must be made on the electronic document DICTATION DATE: 11/13/201944 LOG TURNER: MELIZA 11/13/201944 RPT#: [id number] DC DATE:11/13/20 STATUS: DIS IN [facility] [address] [place] [address] END OF REPORT
--- NOTE | 2020-11-14 09:57 | CN ---
PATIENT NAME:MARIBEL STOKES MEDICAL RECORD: [id number] : 63 LOCATION:D. D.2118 ADMIT DATE: 11/12/20 ACCOUNT: [id number] CONSULTING PHYSICIAN: OUMAR CERNA MD REFERRING PHYSICIAN: KHADIJAH ATKINS MD DATE OF CONSULTATION: 11/12/2020 HISTORY OF PRESENT ILLNESS: A 55-year-old gentleman, admitted with history of coronary artery disease status post intervention to [facility], been relatively pain free; however, he has had severe degenerative arthritis and recently had hip replacement. Aspirin was stopped, but he was on Eliquis, onset today, fairly rapid, of chest tightness, pressure with exertion. Initial ECG in the ER was nondiagnostic for NH. A second EKG showed mild ST elevation in the anterior leads. He was brought to the phlebotomist medical lab assistant on an urgent basis. PAST MEDICAL HISTORY: Includes history of; 1. Osteoarthritis, status post total hip replacement. 2. Hypertension. 3. Hyperlipidemia. 4. Coronary artery disease as described above. ALLERGIES: CODEINE. MEDICATIONS: Chronically include methotrexate 15 mg on Fridays, Eliquis 2.5 b.i.d., amlodipine 5 mg p.o. daily, losartan 100 daily, atorvastatin 40 mg p.o. daily, oxycodone 10/325 daily. SOCIAL HISTORY: Nonsmoker, nondrinker. Previously he exercised fairly regularly up until hip pain made prohibitive. REVIEW OF SYSTEMS: The patient reports easy bruising but reports no swollen glands. The patient reports no fever, no night sweats, no significant weight gain, no significant weight loss. No significant exercise tolerance. The patient reports no dry eyes, no irritation, no vision change. Patient reports no difficulty hearing and no ear pain. Patient reports no frequent nose bleeds or nose and sinus problems. Patient reports on arm pain on exertion. No shortness of breath while lying down. No history of heart murmur. Patient reports no cough, no wheezing or coughing up blood. Patient reports no abdominal pain, no vomiting. Normal appetite. No diarrhea and not vomiting blood. No nausea and no constipation. Patient reports no incontinence. No difficulty urinating. No hematuria. No increased frequency. Patient reports no muscle aches. No weakness, no arthralgias, no back pain. No swelling of the extremities. Patient reports no abnormal mole, no jaundice, no rashes. Reports no loss of consciousness. No weakness and no numbness. No seizures, dizziness, or headaches. The patient reports no depression, no sleep disturbance, feeling safe in a relationship and no alcohol abuse. Patient reports on fatigue. Reports no runny nose or sinus pressure. No itching, no hives, and no frequent sneezing. PHYSICAL EXAMINATION: GENERAL: Appears in mild distress, somewhat comfortable, alert and oriented. VITAL SIGNS: 186/92, pulse 74 and regular. HEENT: Normocephalic, atraumatic. NECK: No JVD or bruit. HEART: Regular. S4 gallops noted. CONSULT REPORT [id number] MARIBEL STOKES LUNGS: Good air excursion. ABDOMEN: Soft and nontender. EXTREMITIES: Pulses are 2+. There is trace edema of the right leg. NEUROLOGIC: Grossly intact. DIAGNOSTIC STUDIES: EKG shows ST elevation anterolaterally. IMPRESSION: ST-elevation myocardial infarction. PLAN: For angiography and intervention based on the above. TRANSINT:[id number] Voice Confirmation ID: [id number] DOCUMENT ID: [id number] OUMAR CERNA MD at 0957 CC: [id number] DICTATION DATE: 11/12/202000 LICENSED REACTOR OPERATOR: 11/12/204 DIS IN 11/13/20 [facility] [address] [place] [address]
--- NOTE | 2020-11-14 09:57 | OP ---
PATIENT NAME: MARIBEL STOKES MEDICAL RECORD: [id number] :63 LOCATION:D.M2 D.2118 ADMISSION DATE:11/12/20 SURGEON: OUMAR CERNA MD DATE OF OPERATION: 11/12/2020 PROCEDURE PERFORMED: Left heart cath, selective coronary angiography, right femoral artery approach. CATHETERS: A 5-Puerto Rican sheath, 5/4 left and right Magdaleno, 5/4 pig. The procedure was well tolerated, the patient returned to the baer, sheath removed, ExoSeal device placed. FINDINGS: Left ventriculography in 30-degree FARIA view shows anteroapical hypokinesis. LV function lower limits of normal to mildly reduced 45% to 50%. CORONARY ANATOMY: Left main: Left main is free of disease. LAD: In the area of previous stenting is basically subtotal with АНДРЕЙ 2 flow distally obviously with infarct related artery. There is a moderate sized ramus branch free of disease. Circumflex: Moderate sized circumflex free of disease. Right coronary artery: Dominant, free of disease. IMPRESSION: АНДРЕЙ secondary to occlusion of a previously placed stent. PLAN: Intervention momentarily. DESCRIPTION: A 5-Puerto Rican sheath was exchanged for a 6-Puerto Rican sheath. A BMW wire was placed across the subtotal LAD down to the distal portion of the vessel. Balloon used was a 3.0 x 4 up to 14 atmospheres and down the entire length of the stent. This shows excellent resolution of restenosis with threatened closure to no significant residual. АНДРЕЙ flow improved from 2 to 3. Sheath closed with ExoSeal device. Plavix loaded in the lab. TRANSINT:[id number] Voice Confirmation ID: [id number] DOCUMENT ID: [id number] OUMAR CERNA MD at 0957 CC: [id number] DICTATION DATE: 11/12/202002 HELICOPTER DISPATCHER: 11/12/20 2251 DIS IN 11/13/20 [facility] [id number] [place] [address]
--- NOTE | 2020-11-14 11:48 | MORECARE ---
CASE MANAGEMENT DISCHARGE SUMMARY PATIENT: MARIBEL IZAGUIRRE UNIT: [id number] ADM DATE: 11/12/20 AGE: 55 : 63 SEX: M ROOM/BED: D.2118 AUTHOR: TONAY DREW PHYSICIAN: REFERRING PHYSICIAN: KHADIJAH ATKINS MD DATE OF SERVICE: 11/14/20 Case Management Discharge Planning Summary COMMENTS ENTERED DATE: 11/13/20 19:38 CT COMMENT TYPE: Discharge Planning REVIEWER: Santi Reno CM met with patient to complete DC plan and to evaluate needs. Patient lives independently with his , Ambreen Izaguirre, . Patient stated that his home is safe and has electricity and running water. Patient stated that the home has a ramp and he is able to manage entering the home without difficulty. Patient stated that he has no problems paying for medications and he fills his medications at [facility] on [address] [place] [address]. Patient stated that his primary care physician is Dr. Cagle. At discharge, the patient plans to return home and feels this is a safe discharge. CM discussed availability of home health, rehab services, and medical equipment. Patient declined HHS, SNF, IPR, and DME. Patient stated that he has a cane, walker, and Bedside commode. Patient voiced no other needs at this time and is satisfied with DC plan. CM will continue to follow and will assist as needed with dc plans/needs. DCP REVIEW SUMMARY ANTICIPATED D/C DATE: 11/13/2020 EXPECTED LOS : 1 CASE STATUS: DCP Initiated INITIAL REVIEW: 11/12/2020 INITIAL REVIEWER: Santi Reno FINAL DISCHARGE DISPOSITION: : FINAL REVIEWER: FINAL REVIEW DATE: [facility] Focus Questions & Answers DCP Evaluation QUESTION: ANSWER Patient and/or caregiver agree upon recommended discharge plan? : Yes Family / Caregiver's ability to cope with chronic illness: : a. Adequate (ability to meet patient's medical needs, ensures patient attends medical appts.) Patient's current cognitive status: : *Oriented to person, place, situation, time and present Patient's ability to cope with chronic illness : d. No chronic illness Patient gives permission to discuss discharge plans with: (name, relationship and number) : , Ambreen Izaguirre, Does the patient have the ability to pay for or attain post discharge needs / services? : Yes Functional screen assessment: : Basic needs can adequately be met by self Family / Caregiver's ability to cope with chronic illness: : a. Adequate (ability to meet patient's medical needs, ensures patient attends medical appts.) Physical Status: : Independent with ADL's Equipment needed for post hospitalization: : None Is there a likelihood that the patient will require additional services to return to the preadmission environment? : No Living Arrangements: : Home with Spouse/Significant Other Patient with capacity for self-care or can be cared for in same environment as prior to hospitalization? : Yes Baseline cognitive status: : *Oriented to person, place, situation, time and present Physical environment modification needed / anticipated for discharge: : No Medication Management: : Patient states can read and understand medication labels Medication Management: : Patient states can afford medications Pharmacy name(s): : [facility] on [address] [place] [address] Does Patient have transportation to get home and to follow-up medical appointments when discharged from the hospital? : Yes Would patient like to participate in any Care Coordination programs (if applicable): : Not applicable Does the patient have electricity at home? : Yes Does the patient have running water in their house? : Yes Equipment in use: : Walker - Rolling Equipment in use: : Cane - Single Leg Equipment in use: : Bedside Commode Other Equipment comments: : RAMP Mental health screen: : No mental health history DCP Re-evaluation QUESTION: ANSWER Would patient like to participate in any Care Coordination programs (if applicable): : Not applicable PATIENT: MARIBEL IZAGUIRRE ENCOUNTER: [id number] MEDICAL RECORD#: [id number] ADMISSION DATE: 11/12/2020 DISCHARGE DATE: 11/13/2020 ATTENDING MD: KHADIJAH HERRERA : AGE: 55 MARITAL STATUS: M DC PLAN ID: [id number] FACILITY: [facility] PRINTED ON: 11/14/20 11:48 CT All edits/amendments must be made on the electronic document DICTATION DATE: 11/14/208 ENTERTAINMENT MANAGER: MELIZA 11/14/20 1148 RPT#: [id number] DC DATE:11/13/20 STATUS: DIS IN [place] [id number] [place] [address] END OF REPORT
== END 2020-11-13 16:10 | disposition home or self-care (01) | DRG 250 ==
LOC: D.ER 17:17 → D.M2 18:37 → D.ER 19:05 → D.M2 11-13 16:10
PROVIDERS: Family Medicine; Internal Medicine Interventional Cardiology; ADMIT Family Medicine; ATTEND Family Medicine
PROC: B2111ZZ Fluoroscopy of Multiple Coronary Arteries using Low Osmolar Contrast (ICD-10-PCS; 2020-11-12)
PROC: B2151ZZ Fluoroscopy of Left Heart using Low Osmolar Contrast (ICD-10-PCS; 2020-11-12)
PROC: 02703ZZ Dilation of Coronary Artery, One Artery, Percutaneous Approach (ICD-10-PCS; principal; 2020-11-12 19:04)
PROC: 4A023N7 Measurement of Cardiac Sampling and Pressure, Left Heart, Percutaneous Approach (ICD-10-PCS; 2020-11-12 19:04)
DX: I97.190 Other postprocedural cardiac functional disturbances following cardiac surgery (principal); I21.A9 Other myocardial infarction type; T82.855A Stenosis of coronary artery stent, initial encounter; T82.897A Other specified complication of cardiac prosthetic devices, implants and grafts, initial encounter; Y83.9 Surgical procedure, unspecified as the cause of abnormal reaction of the patient, or of later complication, without mention of misadventure at the time of the procedure; I10 Essential (primary) hypertension; E78.5 Hyperlipidemia, unspecified; I25.10 Atherosclerotic heart disease of native coronary artery without angina pectoris; F32.9 Major depressive disorder, single episode, unspecified; G89.29 Other chronic pain

== ENCOUNTER → 2020-12-16 07:40 | Outpatient (CLI) | payer OTHER ==
[2020-11-13 02:45] VITALS: BMI 32.4
== END | disposition home or self-care (01) ==
LOC: D.US 07:40
PROVIDERS: ATTEND Nurse Practitioner Family
DX: E04.1 Nontoxic single thyroid nodule (principal)